=== PATIENT | male | born 2000 | race Caucasian/White ===

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

== ENCOUNTER → 2021-10-15 15:47 | Outpatient (CLI) | payer MEDICAID, SELFPAY | PROVIDERS: Visit Provider Nurse Practitioner | DX: U07.1 COVID-19 (principal) | CPT/HCPCS: C9803; U0003; U0005 ==

== ENCOUNTER 2022-11-16 10:27 | Emergency (ER) | payer OTHER, SELFPAY ==
--- NOTE | 2022-11-16 10:39 | XR_ITS ---
PROCEDURE INFORMATION: Exam: XR Left Hand Exam date and time: 11/16/2022 10:42 AM Age: 22 years old Clinical indication: Pain; Hand; Left; Additional info: Punched counter top TECHNIQUE: Imaging protocol: Radiologic exam of the left hand. Views: 3 or more views. COMPARISON: CR HANDL3 HAND-LT-3 VIEWS 07/18/2016 3:23 PM FINDINGS: Bones/joints: Acute fracture base of 5th metacarpal. Soft tissues: Associated soft tissue swelling. IMPRESSION: Acute fracture base of 5th metacarpal.
[2022-11-16 10:45] VITALS: BP 164/93; PULSE 98; RESP 20; TEMP 37.1; O2SAT 96; BMI 44.4
--- NOTE | 2022-11-16 11:35 | EXP.UTC ---
Discharge Plan Disposition Patient Disposition: Home, Self-Care Condition: Good Prescriptions Prescriptions: New ibuprofen [IBU] 800 mg tablet 800 mg PO TIDP PRN (Reason: Moderate Pain) Qty: 20 0RF Referrals Follow up/Referrals: Neil Macias JR, MD [Physician] - See instructions (Call office tomorrow for appointment with Kaitlyn on Thursday or Thursday) Provider,MD Roxann [Primary Care Provider] - See instructions Kaitlyn Pena PA [Physician Nursing Professor] - See instructions (Call office for appointment Thursday or Thursday) Activity Restrictions/Add. Instructions Additional Instructions/Restrictions: Call Orthopedic office in the morning for appointment with Kaitlyn on Thursday or Thursday Ibuprofen as directed for pain *RICE, Rest the extremity, Ice 15-20 minutes 3-4 times daily, Compress- wear the jatin wrap as discussed as much as possible to help reduce swelling and pain, Elevate the extremity when at rest *Jatin wrap and Orthoglass is for support and help control swelling, . Be sure that is not to tight but not to loose either *Elevate when resting? Clinical Impressions Clinical Impression: Fracture of metacarpal Qualifiers: Encounter type: initial encounter Metacarpal bone: fifth Fracture type: closed Metacarpal location: base Fracture alignment: displaced Laterality: left Qualified Code(s): S62.317A - Displaced fracture of base of fifth metacarpal bone, left hand, initial encounter for closed fracture Stand Alone Forms Stand Alone Forms: Work/School Release Instructions Patient Instructions: How To Perform RICE (Rest, Ice, Compress, Elevate), Ibuprofen Discharge ED Provider: Zoraida Morton [facility] [place] HPI General Stated complaint: [id number] left hand injury,home Mode of Arrival: Ambulatory Source of Information: Patient Limitations: No Limitations Time Seen by Provider: 11/16/22 11:36 Description of Symptoms (Recalled from Triage Doc. by RN): left hand punched counter top HEENT Symptoms (Recalled from RN notes): No Resp Symptoms (Recalled from RN notes): No Skin Symptoms (Recalled from RN notes): No MS Symptoms (Recalled from RN notes): Yes Functional Status (Recalled from RN notes): n/a History of Present Illness Provider Complaint: Patient states that he got mad and punched the top of a counter top States that he immediately had pain in the top of his left hand and felt a pop States that as the day went on he continued to have worsening of pain so he came in Related Data Previous Rx's Medication Instructions Recorded ibuprofen 800 mg tablet (IBU) 800 mg PO TIDP PRN Moderate Pain 11/16/22 #20 tabs Allergies Allergy/AdvReac Type Severity Reaction Status Date / Time amoxicillin [AMOXICILLIN] Allergy Unknown Verified 11/16/22 11:11 cephalexin [From KEFLEX] Allergy Unknown Verified 11/16/22 11:11 clavulanic acid Allergy Unknown Verified 11/16/22 11:11 [From AUGMENTIN] Worker's Comp Is this a Worker's Comp case?: No [facility] Disclaimer: The information contained in this section may have been updated after the patient was seen, as this information can be updated by other users. 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 Smoking Status: Never smoker second hand exposure: No alcohol intake: never substance use type: denies use current occupational status: other Travel in the last 8 weeks: None household members: family housing: house current occupational exposures/hazards: No caffeine: Yes ROS Obtained: Yes All systems reviewed & no additional complaints except as documented and Yes Systems reviewed as appropriate & no additional complaints except as documented Constitutional Constitutional: Reports system reviewed and no additional complaints, except as documented and Reports as per HPI Cardiovascular Cardiovascular: Reports system reviewed and no additional complaints, except as documented and Reports as per HPI Respiratory Respiratory: Repo
[2022-11-16 12:12] VITALS: BP 164/93; PULSE 98; RESP 20; TEMP 37.1; O2SAT 96
== END 2022-11-16 12:11 | disposition home or self-care (01) ==
PROVIDERS: Emergency Provider Nurse Practitioner
DX: S62.317A Displaced fracture of base of fifth metacarpal bone, left hand, initial encounter for closed fracture (principal); W22.8XXA Striking against or struck by other objects, initial encounter
CPT/HCPCS: 29085; 73130; 99212; 99213; G0463

== ENCOUNTER → 2022-12-05 22:35 | Outpatient (CLI) | payer OTHER, SELFPAY ==
[2022-12-05 18:35] LABS: Basophils # 0.1 K/mm3 (0-0.2); Basophils % 1.1 % (0.1-2.0); Eosinophils # 0.2 K/mm3 (0.0-0.4); Eosinophils % 1.9 % (0.1-12.0); Hematocrit 47.1 % (42.0-52.0); Hemoglobin 16.1 g/dL (14.1-18.0); Lymphocytes # 3.4 K/mm3 (0.7-4.5); Lymphocytes % 31.3 % (10-50); Mean Corpuscular HGB Conc 34.2 g/dL (31.8-35.4); Mean Corpuscular Hemoglobin 29.6 pg (27.0-31.2); Mean Corpuscular Volume 86.4 fl (80-94); Mean Platelet Volume 10.2 fl (7.4-10.4); Monocytes # 0.7 K/mm3 (0.1-1.0); Monocytes % 6.4 % (1.7-9.3); Neutrophils # 6.5 K/mm3 (1.8-7.8); Neutrophils % 59.3 % (37.0-80.0); Platelet Count 274 K/mm3 (142-424); Red Blood Count 5.46 M/mm3 (4.60-6.20); Red Cell Distribution Width 13.2 % (11.5-17.5); White Blood Count 10.9 K/mm3 (4.8-10.8)
[2022-12-05 18:45] LABS: Alanine Aminotransferase 44 U/L (12-78); Albumin Level 4.5 g/dl (3.5-5.0); Albumin/Globulin Ratio 1.7 (1.1-1.8); Alkaline Phosphatase 115 U/L (38-126); Anion Gap 12.3 mEq/L (5-15); Aspartate Amino Transferase 30 U/L (17-59); Bilirubin,Total 0.4 mg/dl (0.2-1.3); Blood Urea Nitrogen 17 mg/dl (9-20); Calcium 8.8 mg/dl (8.4-10.2); Carbon Dioxide 28 mmol/L (22.0-30.0); Chloride 103 mmol/L (98-107); Chol/HDL Ratio 4.5 (1-3.5); Cholesterol 154 mg/dl (140-200); Estimated Glomerular Filt Rate 107 ml/min (>60); GFR (African American) 129 ML/MIN (>60); Globulin 2.7 g/dL (1.3-3.2); Glucose 98 mg/dl (74-100); HDL Cholesterol 34 mg/dl (40-60); Potassium 4.3 mmoL/L (3.5-5.1); Sodium 139 mmol/L (136-145); Total Protein,Serum 7.2 g/dl (6.3-8.2); Triglycerides 204 mg/dl (30-150); VLDL Cholesterol 41 mg/dL (0-40)
[2022-12-05 18:56] LABS: Direct LDL Cholesterol 105.91 mg/dL (100-129)
[2022-12-05 19:02] LABS: 25-OH Vitamin D, Total 14.6 ng/mL (30-100)
[2022-12-05 19:16] LABS: Thyroid Stimulating Hormone 3.19 uIU/mL (0.465-4.68)
== END ==
PROVIDERS: PCP Nurse Practitioner Family; Visit Provider Nurse Practitioner Family
DX: I10 Essential (primary) hypertension (principal); R53.83 Other fatigue; E55.9 Vitamin D deficiency, unspecified
CPT/HCPCS: 80053; 80061; 82306; 83036; 84443; 85025

== ENCOUNTER → 2023-03-20 16:16 | Outpatient (CLI) | payer OTHER, SELFPAY ==
--- NOTE | 2023-03-20 16:23 | XR_ITS ---
PROCEDURE INFORMATION: Exam: XR Entire Spine Exam date and time: 03/20/2023 4:25 PM Age: 22 years old Clinical indication: Low back pain TECHNIQUE: Imaging protocol: XR of the entire spine. Evaluation for scoliosis or surgical evaluation. Views: 2 or 3 views. COMPARISON: CR CXR CHEST(2 VIEWS-NOT PORTABLE) 01/02/2017 2:10 PM FINDINGS: Bones/joints: No significant scoliosis . 3 degrees of scoliosis of the thoracic spine. IMPRESSION: No significant scoliosis . 3 degrees of scoliosis of the thoracic spine.
== END ==
PROVIDERS: PCP Nurse Practitioner Family; Visit Provider Nurse Practitioner Family
DX: M54.9 Dorsalgia, unspecified (principal); M54.50 Low back pain, unspecified
CPT/HCPCS: 72081

== ENCOUNTER 2023-04-11 19:23 | Emergency (ER) | payer OTHER, SELFPAY ==
[2023-04-11 19:30] VITALS: BP 179/95; PULSE 80; RESP 18; TEMP 37.3; O2SAT 98; BMI 31.1
--- NOTE | 2023-04-11 19:37 | EXP.UTC ---
Discharge Plan Disposition Patient Disposition: Home, Self-Care Condition: Good Prescriptions Prescriptions: No Action minocycline 100 mg capsule 100 mg PO BID 10 Days Qty: 20 0RF prednisone 20 mg tablet 20 mg PO BID 5 Days Qty: 10 0RF benzonatate 100 mg capsule 100 mg PO TID PRN (Reason: cough) Qty: 30 0RF cholecalciferol (vitamin D3) 50 mcg (2,000 unit) capsule 50 mcg PO DAILY Qty: 30 4RF cholecalciferol (vitamin D3) 1,250 mcg (50,000 unit) tablet 1,250 mcg PO WEEKLY Qty: 7 2RF Referrals Follow up/Referrals: Rizwan Timmons APRN [Primary Care Provider] - See instructions Activity Restrictions/Add. Instructions Additional Instructions/Restrictions: covid swab was sent to lab, call tomorrow for results. self isolate until test results are known to be negative Clinical Impressions Clinical Impression: Close exposure to COVID-19 virus Instructions Patient Instructions: COVID-19: Protecting Yourself When You're at High Risk, Preventing the Spread of Coronavirus Discharge Instructions Discharge ED Provider: Benigno ([facility])Antonia [facility] [place] HPI General Stated complaint: exposed to covid Mode of Arrival: Ambulatory Source of Information: Patient Limitations: No Limitations Time Seen by Provider: 04/11/23 19:38 HEENT Symptoms (Recalled from RN notes): No Resp Symptoms (Recalled from RN notes): No Skin Symptoms (Recalled from RN notes): No GI/ Symptoms (Recalled from RN notes): No MS Symptoms (Recalled from RN notes): No Card Symptoms (Recalled from RN notes): No Other (Recalled from RN notes): No History of Present Illness Provider Complaint: 22 yr old male presents for a covid test. grandmother tested positive Related Data Previous Rx's Medication Instructions Recorded cholecalciferol (vitamin D3) 1,250 1,250 mcg PO WEEKLY #7 tabs 12/11/22 mcg (50,000 unit) tablet cholecalciferol (vitamin D3) 50 50 mcg PO DAILY #30 caps 12/11/22 mcg (2,000 unit) capsule benzonatate 100 mg capsule 100 mg PO TID PRN cough #30 caps 03/19/23 minocycline 100 mg capsule 100 mg PO BID 10 days #20 caps 03/19/23 prednisone 20 mg tablet 20 mg PO BID 5 days #10 tabs 03/19/23 Allergies Allergy/AdvReac Type Severity Reaction Status Date / Time amoxicillin [AMOXICILLIN] Allergy Unknown Verified 03/19/23 15:49 cephalexin [From KEFLEX] Allergy Unknown Verified 03/19/23 15:49 clavulanic acid Allergy Unknown Verified 03/19/23 15:49 [From AUGMENTIN] [facility] Disclaimer: The information contained in this section may have been updated after the patient was seen, as this information can be updated by other users. 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 smoker second hand exposure: No alcohol intake: never substance use type: denies use current occupational status: other Travel in the last 8 weeks: None household members: family housing: house current occupational exposures/hazards: No caffeine: Yes ROS Obtained: Yes All systems reviewed & no additional complaints except as documented Constitutional Constitutional: Reports system reviewed and no additional complaints, except as documented Eyes Eyes: Reports system reviewed and no additional complaints, except as documented ENT Ears, Nose, Mouth, and Throat: Reports system reviewed and no additional complaints, except as documented Cardiovascular Cardiovascular: Reports system reviewed and no additional complaints, except as documented Respiratory Respiratory: Reports system reviewed and no additional complaints, except as documented Gastrointestinal Gastrointestingal: Reports system reviewed and no additional complaints, except as documented Integumentary/Breasts Skin/Breast: Reports system reviewed and no additional complaints, except as documented Neurologic Neurologic: Reports system reviewed and no additional complaints, except as documented Endocrine Endocrine: R
[2023-04-11 19:43] VITALS: BP 179/95; PULSE 80; RESP 18; TEMP 37.3; O2SAT 98
== END 2023-04-11 19:47 | disposition home or self-care (01) ==
PROVIDERS: Emergency Provider Nurse Practitioner Family; PCP Nurse Practitioner Family
DX: Z20.822 Contact with and (suspected) exposure to COVID-19 (principal)
CPT/HCPCS: 99212; G0463

== ENCOUNTER 2023-06-17 17:06 | Emergency (ER) | payer OTHER, SELFPAY ==
[2023-06-17 17:40] VITALS: BP 194/94; PULSE 69; RESP 18; TEMP 37.1; O2SAT 98; BMI 41.7
--- NOTE | 2023-06-17 18:05 | EXP.UTC ---
Discharge Plan Disposition Patient Disposition: Still a Patient Prescriptions Prescriptions: No Action cholecalciferol (vitamin D3) 50 mcg (2,000 unit) capsule 50 mcg PO DAILY Qty: 30 4RF minocycline 100 mg capsule 100 mg PO BID cholecalciferol (vitamin D3) 1,250 mcg (50,000 unit) tablet 1,250 mcg PO WEEKLY Referrals Follow up/Referrals: Rizwan Timmons APRN [Primary Care Provider] - See instructions Clinical Impressions Clinical Impression: Abdominal pain Qualifiers: Abdominal location: right upper quadrant Qualified Code(s): R10.11 - Right upper quadrant pain Discharge ED Provider: Benigno ([facility])[place] [facility] General Stated complaint: abd pain, nausea Mode of Arrival: Ambulatory Source of Information: Patient Limitations: No Limitations Time Seen by Provider: 06/17/23 18:05 Description of Symptoms (Recalled from Triage Doc. by RN): Stomach pain. This has been going on for 3-4 month and getting worse. When he eats it runs right through him. HEENT Symptoms (Recalled from RN notes): No Resp Symptoms (Recalled from RN notes): No Skin Symptoms (Recalled from RN notes): No MS Symptoms (Recalled from RN notes): No Functional Status (Recalled from RN notes): n/a History of Present Illness Provider Complaint: 23 yr old male presents for upper rt abd pain for 2-3 months but worsening. pt states every time he eats it goes right through him. pt states he abd pain is the worse today. pt states his abd is tearing it up in there Related Data Home Medications Medication Instructions Recorded Confirmed cholecalciferol (vitamin D3) 1,250 1,250 mcg PO WEEKLY supplement 06/17/23 06/17/23 mcg (50,000 unit) tablet minocycline 100 mg capsule 100 mg PO BID acne 06/17/23 06/17/23 Previous Rx's Medication Instructions Recorded cholecalciferol (vitamin D3) 50 50 mcg PO DAILY #30 caps 12/11/22 mcg (2,000 unit) capsule Allergies Allergy/AdvReac Type Severity Reaction Status Date / Time amoxicillin [AMOXICILLIN] Allergy Unknown Verified 06/17/23 17:59 cephalexin [From KEFLEX] Allergy Unknown Verified 06/17/23 17:59 clavulanic acid Allergy Unknown Verified 06/17/23 17:59 [From AUGMENTIN] Worker's Comp Is this a Worker's Comp case?: No [facility] Disclaimer: The information contained in this section may have been updated after the patient was seen, as this information can be updated by other users. 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 second hand exposure: No alcohol intake: never substance use type: denies use current occupational status: other Travel in the last 8 weeks: None household members: family housing: house current occupational exposures/hazards: No caffeine: Yes ROS Obtained: Yes All systems reviewed & no additional complaints except as documented Constitutional Constitutional: Reports system reviewed and no additional complaints, except as documented Eyes Eyes: Reports system reviewed and no additional complaints, except as documented ENT Ears, Nose, Mouth, and Throat: Reports system reviewed and no additional complaints, except as documented Cardiovascular Cardiovascular: Reports system reviewed and no additional complaints, except as documented Respiratory Respiratory: Reports system reviewed and no additional complaints, except as documented Gastrointestinal Gastrointestingal: Reports system reviewed and no additional complaints, except as documented, as per HPI, abdominal pain, change in bowel habits, diarrhea and reflux Genitourinary Male Genitourinary: Reports system reviewed and no additional complaints, except as documented Integumentary/Breasts Skin/Breast: Reports system reviewed and no additional complaints, except as documented Neurologic Neurologic: Reports system reviewed and no additional complaints, except as documented Endocrine Endocrine: Reports system reviewed an
[2023-06-17 18:20] LABS: Microscopic, Urine URINE MICROSCOPIC (MICROSCOPIC)
[2023-06-17 18:23] LABS: Appearance,Urine CLEAR (Clear); Bilirubin,Urine Negative (Negative); Blood, Urine TRACE-I (Negative); Color,Urine YELLOW (Yellow); Glucose,Urine (UA) Negative (Negative); Ketones,Urine Negative (Negative); Leukocyte Esterase,Urine Negative (Negative); Nitrate,Urine Negative (Negative); Protein,Urine Negative (Negative); Specific Gravity, Urine 1.025 (1.005-1.030)
--- NOTE | 2023-06-17 18:34 | PC.NURSE ---
pt arrived to room 11 from [facility]
[2023-06-17 18:35] LABS: RBC,Urine Occasional #/hpf (0-3); Squamous Epithelial Cell,Urine Occasional #/hpf (0-5); WBC,Urine Occasional #/hpf (0-3)
[2023-06-17 18:42] VITALS: BP 165/93; PULSE 65; RESP 18; TEMP 36.7; O2SAT 99; BMI 42.3
--- NOTE | 2023-06-17 19:03 | CT_ITS ---
PROCEDURE INFORMATION: Exam: CT Abdomen And Pelvis With Contrast Exam date and time: 06/17/2023 8:04 PM Age: 23 years old Clinical indication: Abdominal pain; Additional info: Ruq epigastric pain TECHNIQUE: Imaging protocol: Computed tomography of the abdomen and pelvis with contrast. Radiation optimization: All CT scans at this facility use at least one of these dose optimization techniques: automated exposure control; mA and/or kV adjustment per patient size (includes targeted exams where dose is matched to clinical indication); or iterative reconstruction. Contrast material: ISOVUE; Contrast volume: 75 ml; Contrast route: IV; REPORTING DATA: Count of CT and Cardiac NM exams in prior 12 months: This patient has received 0 known CTs and 0 known cardiac nuclear medicine studies in the 12 months prior to the current study. COMPARISON: CR XR SCOLIOSIS SURVEY 03/20/2023 4:25 PM FINDINGS: Liver: Normal. No mass. Gallbladder and bile ducts: Normal. No calcified stones. No ductal dilation. Pancreas: Normal. No ductal dilation. Spleen: Normal. No splenomegaly. Adrenal glands: Normal. No mass. Kidneys and ureters: Normal. No hydronephrosis. Stomach and bowel: Unremarkable. No obstruction. No mucosal thickening. Appendix: No evidence of appendicitis. Intraperitoneal space: Mild misting of the central mesentery. No free air or free fluid. Vasculature: Unremarkable. No abdominal aortic aneurysm. Lymph nodes: Unremarkable. No enlarged lymph nodes. Urinary bladder: Unremarkable as visualized. Reproductive: Unremarkable as visualized. Bones/joints: No acute findings. Suggestion of Scheuermann's disease involving the lower thoracic spine. Soft tissues: Unremarkable. IMPRESSION: Gracia mesentery without definite cause identified, a nonspecific finding with a broad differential that includes mesenteric panniculitis or other inflammation process, edema/hemorrhage, and potentially neoplasm.
--- NOTE | 2023-06-17 19:05 | HMH.EDGENADL ---
Discharge Plan Disposition Patient Disposition: Home, Self-Care Prescriptions Prescriptions: No Action cholecalciferol (vitamin D3) 50 mcg (2,000 unit) capsule 50 mcg PO DAILY Qty: 30 4RF minocycline 100 mg capsule 100 mg PO BID cholecalciferol (vitamin D3) 1,250 mcg (50,000 unit) tablet 1,250 mcg PO WEEKLY Referrals Follow up/Referrals: Rizwan Timmons APRN [Primary Care Provider] - See instructions Jaison Danielle MD [Staff Physician] - See instructions Activity Restrictions/Add. Instructions Additional Instructions/Restrictions: At this time was felt you are safe to be discharged home. If new or worsening symptoms please do not hesitate to return the emergency department. Please call Dr. Danielle tomorrow morning at his office to schedule an appointment as soon as you are able. Clinical Impressions Clinical Impression: Abnormal finding on CT scan Abdominal pain Qualifiers: Abdominal location: right upper quadrant Qualified Code(s): R10.11 - Right upper quadrant pain Instructions Patient Instructions: DI for Acute Abdominal Pain Discharge ED Provider: Mckinley Hartman General Adult HPI General Chief complaint: Abdominal Pain Stated complaint: abd pain, nausea Time Seen by Provider: 06/17/23 18:05 Mode of Arrival: Ambulatory Source of Information: Patient Limitations: No Limitations Description of Symptoms (Recalled from ER Triage Doc. by RN): pt has been experiencing episodes of upper abd pain for the 3-4 days, pt states he thinks his gallbladder is going bad, has been having chornic heart burn and nausea. pt states pain is stabbing in nature and mainly on RUQ History of Present Illness HPI narrative: Patient is a 23-year-old male with past medical history of cardiac arrhythmia status post ablation who presents emergency department for evaluation of epigastric right upper quadrant abdominal pain. Patient states that he has had chronic epigastric pain worse with eating, chronic diarrhea for the last 3 months, nonbloody. Today patient ate a cheeseburger for lunch when he developed epigastric and right upper quadrant abdominal pain. Right upper quadrant aspect has waned somewhat prior to arrival. However due to persistent symptoms he presents here for continued evaluation. Related Data Home Medications Medication Instructions Recorded Confirmed cholecalciferol (vitamin D3) 1,250 1,250 mcg PO WEEKLY supplement 06/17/23 06/17/23 mcg (50,000 unit) tablet minocycline 100 mg capsule 100 mg PO BID acne 06/17/23 06/17/23 Previous Rx's Medication Instructions Recorded cholecalciferol (vitamin D3) 50 50 mcg PO DAILY #30 caps 12/11/22 mcg (2,000 unit) capsule Allergies Allergy/AdvReac Type Severity Reaction Status Date / Time amoxicillin [AMOXICILLIN] Allergy Unknown Verified 06/17/23 17:59 cephalexin [From KEFLEX] Allergy Unknown Verified 06/17/23 17:59 clavulanic acid Allergy Unknown Verified 06/17/23 17:59 [From AUGMENTIN] [facility] Disclaimer: The information contained in this section may have been updated after the patient was seen, as this information can be updated by other users. 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 smoker second hand exposure: No alcohol intake: never substance use type: denies use current occupational status: other Travel in the last 8 weeks: None household members: family housing: house current occupational exposures/hazards: No caffeine: Yes ROS Obtained: Yes Systems reviewed as appropriate & no additional complaints except as documented Physical Exam General General appearance: alert and in no apparent distress Head Head exam: atraumatic and normocephalic Eye Eye exam: Present PERRL and EOMI ENT ENT exam: Present mucous membranes moist Neck Neck exam: Present normal inspection Chest Chest inspection: Present normal inspection and symm
[2023-06-17 19:47] LABS: Basophils # 0.1 K/mm3 (0-0.2); Basophils % 0.5 % (0.1-2.0); Eosinophils # 0.2 K/mm3 (0.0-0.4); Eosinophils % 1.4 % (0.1-12.0); Hematocrit 46.3 % (42.0-52.0); Hemoglobin 15.5 g/dL (14.1-18.0); Lymphocytes # 2.9 K/mm3 (0.7-4.5); Lymphocytes % 24.5 % (10-50); Mean Corpuscular HGB Conc 33.5 g/dL (31.8-35.4); Mean Corpuscular Hemoglobin 28.9 pg (27.0-31.2); Mean Corpuscular Volume 86.3 fl (80-94); Mean Platelet Volume 9.5 fl (7.4-10.4); Monocytes # 0.5 K/mm3 (0.1-1.0); Monocytes % 4.3 % (1.7-9.3); Neutrophils # 8.2 K/mm3 (1.8-7.8); Neutrophils % 69.3 % (37.0-80.0); Platelet Count 265 K/mm3 (142-424); Red Blood Count 5.37 M/mm3 (4.60-6.20); White Blood Count 11.9 K/mm3 (4.8-10.8)
[2023-06-17 19:53] LABS: Alanine Aminotransferase 48 U/L (12-78); Albumin Level 4.6 g/dl (3.5-5.0); Albumin/Globulin Ratio 1.3 (1.1-1.8); Alkaline Phosphatase 118 U/L (38-126); Anion Gap 15.3 mEq/L (5-15); Aspartate Amino Transferase 38 U/L (17-59); Bilirubin,Total 0.3 mg/dl (0.2-1.3); Blood Urea Nitrogen 16 mg/dl (9-20); Carbon Dioxide 23 mmol/L (22.0-30.0); Chloride 106 mmol/L (98-107); Creatinine Clearance Estimated 168 mL/min (50-200); Estimated Glomerular Filt Rate 121 ml/min (>60); GFR (African American) 146 ML/MIN (>60); Globulin 3.6 g/dL (1.3-3.2); Glucose 95 mg/dl (74-100); Lipase 76 U/L (23-300); Potassium 4.3 mmoL/L (3.5-5.1); Sodium 140 mmol/L (136-145); Total Protein,Serum 8.2 g/dl (6.3-8.2)
--- NOTE | 2023-06-17 20:57 | PC.NURSE ---
pt is ready for re eval
[2023-06-17 21:30] VITALS: BP 133/84; PULSE 74; RESP 18; TEMP 36.7; O2SAT 98
== END 2023-06-17 21:32 | disposition home or self-care (01) ==
LOC: UTC 18:09 → ER 18:34
PROVIDERS: Nurse Practitioner Family; Emergency Provider Emergency Medicine; PCP Nurse Practitioner Family
DX: R10.13 Epigastric pain (principal); R10.11 Right upper quadrant pain; F17.200 Nicotine dependence, unspecified, uncomplicated
CPT/HCPCS: 74177; 80053; 81001; 83690; 85025; 87086; 96374; 96375; 99285; J0131; J2405; Q9967

== ENCOUNTER → 2023-07-01 11:18 | Outpatient (CLI) | payer OTHER, SELFPAY ==
[2023-07-01 11:45] LABS: Basophils # 0.1 K/mm3 (0-0.2); Basophils % 0.6 % (0.1-2.0); Eosinophils # 0.2 K/mm3 (0.0-0.4); Eosinophils % 1.9 % (0.1-12.0); Hematocrit 45.7 % (42.0-52.0); Hemoglobin 16.2 g/dL (14.1-18.0); Lymphocytes # 2.7 K/mm3 (0.7-4.5); Lymphocytes % 30.5 % (10-50); Mean Corpuscular HGB Conc 35.3 g/dL (31.8-35.4); Mean Corpuscular Hemoglobin 30.3 pg (27.0-31.2); Mean Corpuscular Volume 85.8 fl (80-94); Mean Platelet Volume 9.7 fl (7.4-10.4); Monocytes # 0.4 K/mm3 (0.1-1.0); Neutrophils # 5.4 K/mm3 (1.8-7.8); Neutrophils % 62.1 % (37.0-80.0); Platelet Count 220 K/mm3 (142-424); Red Blood Count 5.33 M/mm3 (4.60-6.20); Red Cell Distribution Width 13.1 % (11.5-17.5); White Blood Count 8.7 K/mm3 (4.8-10.8)
[2023-07-01 12:31] LABS: Alanine Aminotransferase 47 U/L (12-78); Albumin Level 4.4 g/dl (3.5-5.0); Albumin/Globulin Ratio 1.4 (1.1-1.8); Alkaline Phosphatase 100 U/L (38-126); Amylase 82 U/L (30-110); Anion Gap 12.5 mEq/L (5-15); Aspartate Amino Transferase 34 U/L (17-59); Bilirubin,Total 0.3 mg/dl (0.2-1.3); Blood Urea Nitrogen 15 mg/dl (9-20); Calcium 9.2 mg/dl (8.4-10.2); Carbon Dioxide 26 mmol/L (22.0-30.0); Chloride 106 mmol/L (98-107); Estimated Glomerular Filt Rate 93 ml/min (>60); GFR (African American) 113 ML/MIN (>60); Globulin 3.1 g/dL (1.3-3.2); Glucose 139 mg/dl (74-100); Lipase 81 U/L (23-300); Potassium 3.5 mmoL/L (3.5-5.1); Sodium 141 mmol/L (136-145); Total Protein,Serum 7.5 g/dl (6.3-8.2)
[2023-07-01 12:48] LABS: Procalcitonin 0.053 ng/mL (0.0-2.0)
[2023-07-01 14:47] LABS: Erythrocyte Sedimentation Rate 4 mm/hr (0-15)
[2023-07-02 15:57] LABS: C-Reactive Protein 1.4 mg/L (0-4)
== END ==
PROVIDERS: PCP Nurse Practitioner Family; Visit Provider Surgery
DX: R10.9 Unspecified abdominal pain (principal)
CPT/HCPCS: 36415; 80053; 82150; 83690; 84145; 85025; 85651; 86140

== ENCOUNTER → 2023-07-16 08:30 | Outpatient (CLI) | payer OTHER, SELFPAY ==
--- NOTE | 2023-07-16 08:30 | US_ITS ---
FINAL REPORT CLINICAL HISTORY: abdominal pain COMPARISON: None FINDINGS: Sonographic images of the right upper quadrant were obtained. The pancreas is not visualized secondary to overlying bowel gas. There is increased echogenicity in the liver compatible with fatty infiltration. The gallbladder appears normal without evidence of gallstones.There is no evidence of biliary ductal dilatation.The common duct measures 2.3 mm. Limited images of the right kidney are unremarkable. IMPRESSION: Fatty infiltration of the liver. Pancreas not visualized secondary to overlying bowel gas. Reviewed, Interpreted and Dictated by William Sandhu III, MD Transcribed by Bernice Vail Authenticated and [facility]
== END ==
PROVIDERS: PCP Nurse Practitioner Family; Visit Provider Surgery
DX: R10.9 Unspecified abdominal pain (principal)
CPT/HCPCS: 76705

== ENCOUNTER → 2023-08-31 09:03 | Outpatient (CLI) | payer OTHER, SELFPAY ==
[2023-08-31 13:46] LABS: Occult Blood,Stool Negative (Negative)
[2023-09-03 23:08] LABS: Calprotectin, Fecal 56 ug/g (0-120)
[2023-09-07 02:34] LABS: Pancreatic Elastase, Fecal <50 (>200)
== END ==
PROVIDERS: PCP Internal Medicine; Visit Provider Nurse Practitioner
DX: R10.10 Upper abdominal pain, unspecified (principal); R10.9 Unspecified abdominal pain; K92.1 Melena
CPT/HCPCS: 82272; 82656; 83993; G0328

== ENCOUNTER → 2023-09-16 07:49 | Outpatient (CLI) | payer OTHER, SELFPAY ==
--- NOTE | 2023-09-16 07:50 | CT_ITS ---
FINAL REPORT TECHNIQUE: After the administration of intravenous contrast, axial images were obtained through the abdomen and pelvis by computed tomography. The study was performed with techniques to keep radiation dose as low as reasonably achievable, (ALARA). Individual dose reduction techniques using automated exposure control or adjustment of mA and/or kV according to the patient's size were employed. CLINICAL HISTORY: abdominal pain COMPARISON: 06/17/2023 FINDINGS: Abdomen: The lung bases are clear. There is moderate diffuse fatty infiltration of the liver. The gallbladder is present. The spleen, pancreas, adrenals and kidneys appear unremarkable. The aorta is normal in caliber. Pelvis: The appendix is not identified. The urinary bladder is incompletely distended. There is subtle haziness in the root of the mesentery. There are a few small lymph nodes in the right lower quadrant. IMPRESSION: Nonspecific haziness root of the mesentery, similar to the prior study, and a few small lymph nodes. Mesenteric panniculitis remains a consideration. Fatty liver. Reviewed, Interpreted and Dictated by Barry De Dios MD Transcribed by Rebekah Justice Authenticated and [facility]
[2023-09-16 08:24] LABS: Blood Urea Nitrogen 19 mg/dl (9-20); Estimated Glomerular Filt Rate 121 ml/min (>60); GFR (African American) 146 ML/MIN (>60)
[2023-09-16] MEDS: IOPAMIDOL-370 (76%);100ML BOTTLE 75 ML IV (09:02)
[2023-09-16] MEDS: SODIUM CHLORIDE 0.9% 10ML SYR (RAD ONLY) 10 ML IV (09:02)
== END ==
LOC: RAD 07:50
PROVIDERS: PCP Internal Medicine; Visit Provider Surgery
DX: R10.9 Unspecified abdominal pain (principal)
CPT/HCPCS: 36415; 74177; 82565; 84520; Q9967

== ENCOUNTER 2024-01-15 12:08 | Emergency (ER) | payer OTHER, SELFPAY ==
[2024-01-15 12:10] VITALS: PULSE 84; RESP 18; TEMP 36.7; O2SAT 96; BMI 43.4
--- NOTE | 2024-01-15 12:47 | EXP.UTC ---
Discharge Plan Disposition Patient Disposition: Home, Self-Care Condition: Good Prescriptions Prescriptions: New ondansetron 4 mg tablet,disintegrating 4 mg PO Q8H PRN (Reason: nausea and vomiting) Qty: 12 0RF No Action hydrochlorothiazide 12.5 mg tablet 12.5 mg PO DAILY 30 Days Qty: 30 2RF losartan 25 mg tablet 25 mg PO DAILY 30 Days Qty: 30 2RF Referrals Follow up/Referrals: Lino Cruz, [Primary Care Provider] - See instructions Activity Restrictions/Add. Instructions Additional Instructions/Restrictions: Drink extra fluids with and between meals. If you have difficulty drinking, try very small amounts of water or suck on ice chips. ? Avoid fruit juices, as these do not replace minerals and can actually increase diarrhea. ? Children and adults can use sports drinks to replenish electrolytes. Younger children and infants should use products formulated for children, like oral rehydration solutions. ? Eat food in small amounts and let your stomach recover. ? Get lots of rest. You may feel tired or weak. ? No greasy or fried foods for the next 24-48 hours BRAT diet Bananas Rice Apples and [place] ? Make sure to drink plenty of liquids ? Return if needed ? Straight to ER if any life threatening symptoms ? Zofran as prescribed ? You was given an outpatient order for diarrhea panel, please collect specimen and bring back to outpatient lab then call back to the [facility] or follow up with family doctor for results ? Follow up with family doctor in the next 48-72 hours if no improvement or any worsening of symptoms Your blood pressure was elevated in the [facility] today Make sure to follow up with your Family Doctor for re-evaluation Clinical Impressions Clinical Impression: Nausea vomiting and diarrhea Stand Alone Forms Stand Alone Forms: Work/School Release Instructions Patient Instructions: Diarrhea, Nausea and Vomiting-Adult Discharge ED Provider: Zoraida Morton [facility] [place] General Stated complaint: headache, vomiting Mode of Arrival: Ambulatory Source of Information: Patient Limitations: No Limitations Time Seen by Provider: 01/15/24 12:47 Description of Symptoms (Recalled from Triage Doc. by RN): Pt's symptoms are KHOURY, stomach cramping, diarrhea, and nausea. HEENT Symptoms (Recalled from RN notes): Yes Resp Symptoms (Recalled from RN notes): No Skin Symptoms (Recalled from RN notes): No MS Symptoms (Recalled from RN notes): No Functional Status (Recalled from RN notes): n/a History of Present Illness Provider Complaint: Patient states that several people at work has had a stomach bug States that he started this morning with N/V/D and stomach cramps and feeling fatigued States that he has vomited twice but diarrhea has been like water so he came in to get checked Related Data Previous Rx's Medication Instructions Recorded losartan 25 mg tablet 25 mg PO DAILY 30 days #30 tabs 07/22/23 hydrochlorothiazide 12.5 mg tablet 12.5 mg PO DAILY 30 days #30 tabs 08/06/23 ondansetron 4 mg disintegrating 4 mg PO Q8H PRN nausea and 01/15/24 tablet vomiting #12 tabs Allergies Allergy/AdvReac Type Severity Reaction Status Date / Time amoxicillin [AMOXICILLIN] Allergy Unknown Verified 01/15/24 12:47 cephalexin [From KEFLEX] Allergy Unknown Verified 01/15/24 12:47 clavulanic acid Allergy Unknown Verified 01/15/24 12:47 [From AUGMENTIN] Worker's Comp Is this a Worker's Comp case?: No [facility] Disclaimer: The information contained in this section may have been updated after the patient was seen, as this information can be updated by other users. Medical History Family history of diabetes mellitus Surgical History History of cardiac radiofrequency ablation History of placement of ear tubes 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 Smoking Status: Current every day smoker second hand exposure: No alcohol intake: current substance use type: marijuana current occupational status: unemployed and other Travel in the last 8 weeks: None household members: family housing: house current occupational exposures/hazards: No caffeine: Yes ROS Obtained: Yes All systems reviewed & no additional complaints except as documented and Yes Systems reviewed as appropriate & no additional complaints except as documented Constitutional Constitutional: Reports system reviewed and no additional complaints, except as documented, Reports fatigue, Denies fever(s) and Reports headache(s) ENT Ears, Nose, Mouth, and Throat: Reports system reviewed and no additional complaints, except as documented, Reports as per HPI and Reports headache(s) Cardiovascular Cardiovascular: Reports system reviewed and no additional complaints, except as documented and Reports as per HPI Respiratory Respiratory: Reports system reviewed and no additional complaints, except as documented and Reports as per HPI Gastrointestinal Gastrointestingal: Reports system reviewed and no additional complaints, except as documented, as per HPI, cramping, diarrhea and nausea Musculoskeletal Musculoskeletal: Reports system reviewed and no additional complaints, except as documented and Reports as per HPI Neurologic Neurologic: Reports headache(s) Endocrine Endocrine: Reports fatigue Physical Exam General General appearance: alert and in no apparent distress ENT ENT exam: Present mucous membranes moist Respiratory Respiratory exam: Present normal lung sounds bilaterally; Absent respiratory distress or wheezes Cardiovascular Cardiovascular exam: Present regular rate, normal rhythm and normal heart sounds Abdominal Exam Abdominal exam: Present soft and normal bowel sounds; Absent distention or tenderness Neurological Exam Neurological exam: Present alert, oriented X3 and normal gait Medical Decision Making Herve Inquiry Pt receiving controlled substance: No Herve was queried for this patient: No Vital Signs: 01/15/24 12:10 Temperature 98.1 F Temperature Source Oral Pulse Rate [Right Radial] 84 Respiratory Rate 18 02 Sat by Pulse Oximetry 96 Oxygen Delivery Method Room Air
[2024-01-15 13:05] VITALS: BP 186/94; PULSE 84; RESP 18; TEMP 36.7; O2SAT 96
== END 2024-01-15 13:05 | disposition home or self-care (01) ==
PROVIDERS: Emergency Provider Nurse Practitioner; PCP Internal Medicine
DX: R11.2 Nausea with vomiting, unspecified (principal); R19.7 Diarrhea, unspecified; R51.9 Headache, unspecified; F17.210 Nicotine dependence, cigarettes, uncomplicated
CPT/HCPCS: 99212; 99214; G0463

== ENCOUNTER 2024-03-04 16:48 | Emergency (ER) | payer OTHER, SELFPAY ==
[2024-03-04 17:00] VITALS: PULSE 62; RESP 18; TEMP 36.7; O2SAT 99; BMI 43.8
--- NOTE | 2024-03-04 17:00 | EXP.UTC ---
Discharge Plan Disposition Patient Disposition: Home, Self-Care Condition: Good Prescriptions Prescriptions: New sulfamethoxazole-trimethoprim [Bactrim DS] 800-160 mg tablet 1 tab PO Q12H Qty: 20 0RF prednisone 20 mg tablet 20 mg PO BID Qty: 10 0RF Referrals Follow up/Referrals: Lino Cruz DO [Primary Care Provider] - See instructions Clinical Impressions Clinical Impression: Right otitis media Instructions Patient Instructions: DI for Otitis Media (Middle Ear Infection)-Child Discharge ED Provider: Janna Lynne [facility] [place] General Stated complaint: Congested,sore throat,chest congestion Time Seen by Provider: 03/04/24 17:24 History of Present Illness Provider Complaint: Cough, congestion, sore throat X 2-3 days. Wheezing. SOA. Onset (ago): day(s) (3) Relieving factors: none Exacerbating factors: none Associated symptoms: cough and shortness of breath Treatments prior to arrival: none Related Data Previous Rx's Medication Instructions Recorded prednisone 20 mg tablet 20 mg PO BID #10 tabs 03/04/24 sulfamethoxazole 800 1 tab PO Q12H #20 tabs 03/04/24 mg-trimethoprim 160 mg tablet (Bactrim DS) Allergies Allergy/AdvReac Type Severity Reaction Status Date / Time amoxicillin [AMOXICILLIN] Allergy Unknown Verified 03/04/24 17:17 cephalexin [From KEFLEX] Allergy Unknown Verified 03/04/24 17:17 clavulanic acid Allergy Unknown Verified 03/04/24 17:17 [From AUGMENTIN] [facility] Disclaimer: The information contained in this section may have been updated after the patient was seen, as this information can be updated by other users. Medical History Family history of diabetes mellitus Surgical History History of cardiac radiofrequency ablation History of placement of ear tubes 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 Smoking Status: Current every day smoker second hand exposure: No alcohol intake: current substance use type: marijuana current occupational status: unemployed and other Travel in the last 8 weeks: None household members: family housing: house current occupational exposures/hazards: No caffeine: Yes ROS Obtained: Yes All systems reviewed & no additional complaints except as documented ENT Ears, Nose, Mouth, and Throat: Reports sinus pressure and Reports sore throat Respiratory Respiratory: Reports cough Physical Exam General General appearance: alert and in no apparent distress Head Head exam: atraumatic, normocephalic and normal inspection Eye Eye exam: Present normal appearance, PERRL and EOMI ENT ENT exam: Present normal exam, normal oropharynx, mucous membranes moist and normal external ear exam Expanded ENT Exam TM/Canal exam: Right TM: erythema and bulging Throat exam: Present other (PND) Neck Neck exam: Present normal inspection, full ROM and trachea midline; Absent meningismus or lymphadenopathy Chest Chest inspection: Present normal inspection and symmetric chest wall rise; Absent tenderness Respiratory Respiratory exam: Present normal lung sounds bilaterally; Absent respiratory distress Cardiovascular Cardiovascular exam: Present regular rate and normal rhythm; Absent JVD Abdominal Exam Abdominal exam: Present soft and normal bowel sounds; Absent distention, tenderness or guarding Extremities Exam Extremities exam: Present normal inspection, full ROM and normal capillary refill; Absent calf tenderness Back Exam Back exam: Present normal inspection; Absent tenderness Neurological Exam Neurological exam: Present alert and oriented X3 Psychiatric Psychiatric exam: Present normal affect and normal mood Skin Skin exam: Present warm, dry, intact and normal color Lymphatic Lymphatic Findings: no adenopathy Medical Decision Making Herve Inquiry Pt receiving controlled substance: No
[2024-03-04 17:37] VITALS: BP 0/0; PULSE 62; RESP 18; TEMP 36.7; O2SAT 99
== END 2024-03-04 17:37 | disposition home or self-care (01) ==
PROVIDERS: Emergency Provider Physician Assistant; PCP Internal Medicine
DX: H66.91 Otitis media, unspecified, right ear (principal); R05.9 Cough, unspecified; R07.0 Pain in throat; R09.81 Nasal congestion; F17.210 Nicotine dependence, cigarettes, uncomplicated
CPT/HCPCS: 99212; 99214; G0463

== ENCOUNTER 2024-04-18 16:52 | Emergency (ER) | payer OTHER, SELFPAY ==
[2024-04-18 17:36] VITALS: BP 0/0; PULSE 0; RESP 0; TEMP -17.7; TEMP 0
== END 2024-04-18 17:37 | disposition left against medical advice (07) ==
PROVIDERS: Emergency Provider Nurse Practitioner; PCP Internal Medicine
DX: Z53.21 Procedure and treatment not carried out due to patient leaving prior to being seen by health care provider (principal)

== ENCOUNTER 2024-06-16 13:58 | Emergency (ER) | payer OTHER, SELFPAY ==
[2024-06-16 14:13] VITALS: BP 166/101; PULSE 72; RESP 20; TEMP 36.9; O2SAT 97; BMI 42.0
--- NOTE | 2024-06-16 14:16 | ED_ITS ---
Discharge Plan Disposition Patient Disposition: Home, Self-Care Condition: Good Prescriptions Prescriptions: New azithromycin [Zithromax] 250 mg tablet 250 mg PO UD DOSE PK Qty: 6 0RF Rx Instructions: Take two (2) tablets today, then one (1) tablet days #2 thru #5 [id number] [Bromfed DM] 2-30-10 mg/5 mL Syrup 5 ml PO Q6H PRN (Reason: Cough) Qty: 240 0RF ondansetron 4 mg Tablet,Disintegrating 4 mg PO Q8H PRN (Reason: Nausea) Qty: 9 0RF methylprednisolone 4 mg Tablets,Dose Pack 4 mg PO DIRECTED 6 Days Qty: 21 0RF Rx Instructions: Take 1 pack as directed for 6 days No Action sulfamethoxazole-trimethoprim [Bactrim DS] 800-160 mg tablet 1 tab PO Q12H Qty: 20 0RF prednisone 20 mg tablet 20 mg PO BID Qty: 10 0RF Referrals Follow up/Referrals: Lino Cruz DO [Primary Care Provider] - See instructions Activity Restrictions/Add. Instructions Additional Instructions/Restrictions: Drink plenty of fluids. Take tylenol or ibuprofen for pain or fever. Take the medications as directed. Follow up with your regular doctor. GO TO THE ER FOR ANY WORSENING SYMPTOMS Clinical Impressions Clinical Impression: Pharyngitis, Acute viral syndrome Stand Alone Forms Stand Alone Forms: Work/School Release Instructions Patient Instructions: Sore Throat, DI for Pharyngitis/Tonsillopharyngitis -- Adult Print Language Print Language: Syriac Discharge ED Provider: Esteban Telles [facility] General Stated complaint: sore throat headache Mode of Arrival: Ambulatory Source of Information: Patient Time Seen by Provider: 06/16/24 14:16 Description of Symptoms (Recalled from Triage Doc. by RN): sore throat HEENT Symptoms (Recalled from RN notes): Yes Resp Symptoms (Recalled from RN notes): No Skin Symptoms (Recalled from RN notes): No MS Symptoms (Recalled from RN notes): No Functional Status (Recalled from RN notes): WNL History of Present Illness Provider Complaint: He states that for the past 3 days he has had fever, chills, sore throat, and malaise. Related Data Previous Rx's ?Medication ?Instructions ?Recorded prednisone 20 mg tablet 20 mg PO BID #10 tabs 03/04/24 sulfamethoxazole 800 1 tab PO Q12H #20 tabs 03/04/24 mg-trimethoprim 160 mg tablet (Bactrim DS) azithromycin 250 mg tablet 250 mg PO UD DOSE PK #6 tabs 06/16/24 (Zithromax) [id number] 5 ml PO Q6H PRN Cough #240 mL 06/16/24 2 mg-30 mg-10 mg/5 mL oral syrup (Bromfed DM) methylprednisolone 4 mg tablets in 4 mg PO DIRECTED 6 days #21 tabs 06/16/24 a dose pack ondansetron 4 mg disintegrating 4 mg PO Q8H PRN Nausea #9 tabs 06/16/24 tablet Allergies Allergy/AdvReac Type Severity Reaction Status Date / Time amoxicillin [AMOXICILLIN] Allergy Unknown Verified 03/04/24 17:17 cephalexin [From KEFLEX] Allergy Unknown Verified 03/04/24 17:17 clavulanic acid Allergy Unknown Verified 03/04/24 17:17 [From AUGMENTIN] Worker's Comp Is this a Worker's Comp case?: No [facility] Disclaimer: The information contained in this section may have been updated after the patient was seen, as this information can be updated by other users. Medical History Family history of diabetes mellitus Surgical History History of cardiac radiofrequency ablation History of placement of ear tubes 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 Smoking Status: Current every day smoker second hand exposure: No alcohol intake: current substance use type: marijuana current occupational status: unemployed and other Travel in the last 8 weeks: None household members: family housing: house current occupational exposures/hazards: No caffeine: Yes ROS Obtained: Yes All systems reviewed & no additional complaints except as documented Constitutional Constitutional: Reports chills and Reports fever(s) Eyes Eyes: Denies eye discharge ENT Ears, Nose, Mouth, and Throat: Reports as per HPI Cardiovascular Cardiovascular: Denies chest pain Respiratory Respiratory: Denies chest congestion and Reports cough Gastrointestinal Gastrointestingal: Reports nausea; Denies abdominal pain, constipation, cramping, diarrhea or vomiting Musculoskeletal Musculoskeletal: Denies arthralgias Integumentary/Breasts Skin/Breast: Denies rash Neurologic Neurologic: Denies paresthesias Physical Exam General General appearance: alert and in no apparent distress Head Head exam: atraumatic, normocephalic and normal inspection Eye Eye exam: Present normal appearance, PERRL and EOMI ENT ENT exam: Present mucous membranes moist and normal external ear exam Expanded ENT Exam TM/Canal exam: Bilateral TM: erythema and bulging Nose exam: Absent sinus tenderness Mouth exam: Present normal external inspection; Absent drooling Teeth exam: Present normal inspection Throat exam: Present tonsillar erythema, tonsillomegaly and tonsillar exudate Neck Neck exam: Present normal inspection, full ROM and trachea midline; Absent tenderness, meningismus or lymphadenopathy Chest Chest inspection: Present normal inspection and symmetric chest wall rise; Absent tenderness Respiratory Respiratory exam: Present normal lung sounds bilaterally; Absent respiratory distress, wheezes, stridor or accessory muscle use Cardiovascular Cardiovascular exam: Present regular rate and normal rhythm; Absent systolic murmur or diastolic murmur Abdominal Exam Abdominal exam: Present soft and normal bowel sounds; Absent distention, tenderness, guarding, rebound or rigidity Extremities Exam Extremities exam: Present normal inspection and normal capillary refill; Absent calf tenderness Back Exam Back exam: Present normal inspection and full ROM; Absent tenderness, CVA tenderness (R) or CVA tenderness (L) Neurological Exam Neurological exam: Present alert, oriented X3 and CN II-XII intact Psychiatric Psychiatric exam: Present normal affect and normal mood Skin Skin exam: Present warm, dry, intact and normal color Medical Decision Making Medical Records Medical records reviewed: No I reviewed the patient's medical records. Screening: Per USPSTF and CDC recommendations, given the prevalence of disease in our region, it is our hospital?s policy to screen for HIV and viral Hepatitis for all patients aged 18 and over and those with ongoing risk factors. Herve Inquiry Pt receiving controlled substance: No Vital Signs: 06/16/24 14:13 Temperature 98.4 F Temperature Source Oral Pulse Rate [Left Radial] 72 Respiratory Rate 20 Blood Pressure [Left Arm] 166/101 H Blood Pressure Mean [Left Arm] 122 02 Sat by Pulse Oximetry 97 Lab Data Lab results reviewed: Yes I reviewed the patient's lab results.
[2024-06-16 14:37] LABS: UTC Strep Screen (Rapid) Negative (Negative)
[2024-06-16 14:57] VITALS: BP 166/101; PULSE 72; RESP 20; TEMP 36.9
== END 2024-06-16 15:01 | disposition home or self-care (01) ==
PROVIDERS: Emergency Provider Nurse Practitioner Family; PCP Internal Medicine
DX: J02.9 Acute pharyngitis, unspecified (principal); R50.9 Fever, unspecified; R53.81 Other malaise; B34.9 Viral infection, unspecified
CPT/HCPCS: 87635; 87880; 99212; 99214; G0463

== ENCOUNTER 2024-07-21 15:10 | Outpatient (CLI) | payer OTHER, SELFPAY ==
[2024-07-21 20:14] LABS: Basophils # 0.1 K/mm3 (0-0.2); Basophils % 0.6 % (0.1-2.0); Eosinophils # 0.1 K/mm3 (0.0-0.4); Eosinophils % 0.5 % (0.1-12.0); Hematocrit 44.7 % (42.0-52.0); Hemoglobin 15.5 g/dL (14.1-18.0); Lymphocytes # 2.2 K/mm3 (0.7-4.5); Lymphocytes % 20.5 % (10-50); Mean Corpuscular HGB Conc 34.7 g/dL (31.8-35.4); Mean Corpuscular Hemoglobin 29.3 pg (27.0-31.2); Mean Corpuscular Volume 84.4 fl (80-94); Mean Platelet Volume 9.8 fl (7.4-10.4); Monocytes # 0.5 K/mm3 (0.1-1.0); Monocytes % 4.4 % (1.7-9.3); Neutrophils # 7.7 K/mm3 (1.8-7.8); Platelet Count 278 K/mm3 (142-424); Red Cell Distribution Width 13.6 % (11.5-17.5); White Blood Count 10.4 K/mm3 (4.8-10.8)
[2024-07-21 20:23] LABS: Alanine Aminotransferase 34 U/L (12-78); Albumin Level 4.6 g/dl (3.5-5.0); Albumin/Globulin Ratio 1.5 (1.1-1.8); Alkaline Phosphatase 97 U/L (38-126); Anion Gap 15.9 mEq/L (5-15); Aspartate Amino Transferase 29 U/L (17-59); Bilirubin,Total 0.7 mg/dl (0.2-1.3); Blood Urea Nitrogen 14 mg/dl (9-20); Calcium 9.3 mg/dl (8.4-10.2); Carbon Dioxide 23 mmol/L (22.0-30.0); Chloride 106 mmol/L (98-107); Chol/HDL Ratio 4.4 (1-3.5); Cholesterol 153 mg/dl (140-200); Estimated Glomerular Filt Rate 120 ml/min (>60); GFR (African American) 145 ML/MIN (>60); Glucose 80 mg/dl (74-100); HDL Cholesterol 35 mg/dl (40-60); Potassium 3.9 mmoL/L (3.5-5.1); Sodium 141 mmol/L (136-145); Total Protein,Serum 7.6 g/dl (6.3-8.2); Triglycerides 121 mg/dl (30-150); VLDL Cholesterol 24 mg/dL (0-40)
[2024-07-21 20:25] LABS: Hemoglobin A1C 5.1 % (4.0-6.0)
[2024-07-21 20:34] LABS: Direct LDL Cholesterol 104.09 mg/dL (100-129)
[2024-07-21 20:40] LABS: 25-OH Vitamin D, Total 17.4 ng/mL (30-100)
[2024-07-21 21:18] LABS: HIV (1&2) Antibody Rapid NONREACTIVE (NONREACTIVE)
[2024-07-23 05:11] LABS: HCV Ab Non Reactive (Non Reactive)
== END 2024-07-21 23:59 | disposition home or self-care (01) ==
LOC: LAB.DROPOF 07-22 09:34
PROVIDERS: PCP Internal Medicine; Visit Provider Internal Medicine
DX: E66.01 Morbid (severe) obesity due to excess calories (principal); Z91.89 Other specified personal risk factors, not elsewhere classified; Z68.41 Body mass index [BMI] 40.0-44.9, adult; K76.0 Fatty (change of) liver, not elsewhere classified; R10.11 Right upper quadrant pain; Z11.59 Encounter for screening for other viral diseases; R53.83 Other fatigue
CPT/HCPCS: 80053; 80061; 82306; 83036; 85025; 86803; 87389

== ENCOUNTER 2024-10-03 12:49 | Emergency (ER) | payer OTHER, SELFPAY ==
[2024-10-03 13:05] VITALS: BP 157/103; PULSE 83; RESP 17; TEMP 37.1; O2SAT 98; BMI 44.7
--- NOTE | 2024-10-03 13:12 | ED_ITS ---
Discharge Plan Disposition Patient Disposition: Home, Self-Care Condition: Good Prescriptions Prescriptions: New polymyxin B sulf-trimethoprim 10,000 unit- 1 mg/mL drops 2 drp ophthalmic (eye) Q6H 7 Days Qty: 10 0RF Rx Instructions: in left eye while awake; do not exceed 6 doses in 24 hours albuterol sulfate 90 mcg/actuation HFA aerosol inhaler 2 puff inhalation Q6H PRN (Reason: shortness of breath or wheezing) Qty: 8.5 0RF azithromycin [Zithromax Z-Michael] 250 mg tablet See Rx Instructions .ROUTE .COMPLEX 5 Days Qty: 6 0RF Rx Instructions: For 250 mg dose pack: take 500 mg today (day 1), then 250 mg for 4 days (days 2-5) methylprednisolone [Medrol (Michael)] 4 mg tablets,dose pack See Rx Instructions .Route .COMPLEX 6 Days Qty: 21 0RF Rx Instructions: taper pack; No Action lisinopril 10 mg tablet 10 mg PO DAILY Qty: 30 2RF Referrals Follow up/Referrals: Lino Cruz DO [Primary Care Provider] - See instructions Activity Restrictions/Add. Instructions Additional Instructions/Restrictions: *Monitor Temp, Over the counter Motrin or Tylenol as directed/as needed Tylenol every 4 hours and Motrin every 6 hours (as long as your family doctor has told you that you can take it) for fever or pain. and straight to ER if unable to lower temp less than 101.0 after medication given *Warm salt water gargles may help to soothe the throat *Throat Lozenges? *Warm fluids like tea with honey may help to soothe the throat? *Sleep elevated *Humidifier/Vaporizer Take medication as prescribed Use eye drops as prescribed Follow up IMMEDIATELY for new or worsening symptoms or no Noticeable improvement over the next 48-72 hours. 911 for difficulty breathing or swallowing Clinical Impressions Clinical Impression: Sinusitis, Conjunctivitis Instructions Patient Instructions: DI for Sinusitis, Albuterol, DI for Conjunctivitis Print Language Print Language: Bolivian Discharge ED Provider: Zoraida Morton [facility] General Stated complaint: wheezing, redness/swelling to L eye Mode of Arrival: Ambulatory Source of Information: Patient Limitations: No Limitations Time Seen by Provider: 10/03/24 13:12 Description of Symptoms (Recalled from Triage Doc. by RN): PATIENT C/O SOA AND REDNESS/DRAINAGE TO LEFT EYE HEENT Symptoms (Recalled from RN notes): Yes Resp Symptoms (Recalled from RN notes): Yes Skin Symptoms (Recalled from RN notes): No MS Symptoms (Recalled from RN notes): No Functional Status (Recalled from RN notes): WNL History of Present Illness Provider Complaint: Patient states that he has a hx of asthma and does not have an inhaler at home, States that he has been having sinus congestion/pressure, chest congestion and wheezing at times States that he has also woke up with his left eye draining and matted thinks he may have pink eye States that he has not taken his blood pressure medication yet Related Data Previous Rx's ?Medication ?Instructions ?Recorded lisinopril 10 mg tablet 10 mg PO DAILY #30 tabs 08/01/24 albuterol sulfate 90 mcg/actuation 2 puff inhalation Q6H PRN 10/03/24 aerosol inhaler shortness of breath or wheezing #8.5 grams azithromycin 250 mg tablet See Rx Instructions PO .COMPLEX 5 10/03/24 (Zithromax Z-Michael) days #6 tabs methylprednisolone 4 mg tablets in See Rx Instructions .Route 10/03/24 a dose pack (Medrol (Michael)) .COMPLEX 6 days #21 tabs polymyxin B sulfate 10,000 2 drp ophthalmic (eye) Q6H 7 days 10/03/24 unit-trimethoprim 1 mg/mL eye drops #10 mL Allergies Allergy/AdvReac Type Severity Reaction Status Date / Time amoxicillin (AMOXICILLIN) Allergy Unknown Verified 07/21/24 14:29 cephalexin (From KEFLEX) Allergy Unknown Verified 07/21/24 14:29 clavulanic acid (From Allergy Unknown Verified 07/21/24 14:29 AUGMENTIN) Worker's Comp Is this a Worker's Comp case?: No [facility] Disclaimer: The information contained in this section may have been updated after the patient was seen, as this information can be updated by other users. Medical History (Updated 10/03/24 @ 13:20 by Zoraida Morton APRN) Depression Anxiety History of gastroesophageal reflux (GERD) Hypertension Family history of diabetes mellitus Surgical History History of placement of ear tubes History of cardiac radiofrequency ablation 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 Smoking Status: Current every day smoker second hand exposure: No alcohol intake: current substance use type: marijuana current occupational status: unemployed and other Travel in the last 8 weeks: None household members: family housing: house current occupational exposures/hazards: No caffeine: Yes Have you lived/traveled outside [place] in past 30 days?: No Contact w/someone who lives/traveled outside US past 30 days?: No Exposure to someone with infectious disease in past 14 days?: No Do you have a fever (greater than 100.4 F or 38 C)?: No Have you tested positive for COVID-19: No Exposed to someone with COVID-19 in past 14 days?: No Do you have a sore throat?: No Do you have a cough?: No Do you have any weakness?: No Do you have any diarrhea?: No Are you experiencing any unusual bleeding?: No Do you have any muscle aches/pain?: No Do you have any abdominal pain?: No Are you experiencing loss of taste or smell?: No ROS Obtained: Yes All systems reviewed & no additional complaints except as documented and Yes Systems reviewed as appropriate & no additional complaints except as documented Constitutional Constitutional: Reports system reviewed and no additional complaints, except as documented and Reports as per HPI Eyes Eyes: Reports system reviewed and no additional complaints, except as documented, Reports as per HPI, Reports eye discharge (left) and Reports irritation (left) ENT Ears, Nose, Mouth, and Throat: Reports system reviewed and no additional complaints, except as documented, Reports as per HPI, Reports sinus pain and Reports sinus pressure Cardiovascular Cardiovascular: Reports system reviewed and no additional complaints, except as documented and Reports as per HPI Respiratory Respiratory: Reports system reviewed and no additional complaints, except as documented, Reports as per HPI, Reports chest congestion, Reports cough and Reports wheezing (at times hx of asthma out of inhaler at home) Gastrointestinal Gastrointestingal: Reports system reviewed and no additional complaints, except as documented and as per HPI Allergic/Immunologic Allergic/Immunologic: Reports wheezing (at times hx of asthma out of inhaler at home) Physical Exam General General appearance: alert and in no apparent distress Eye Eye exam: Present conjunctival redness (left) and discharge (left, with matting particles in eyelashes on left eye) ENT ENT exam: Present mucous membranes moist Expanded ENT Exam Nose exam: Present sinus tenderness Throat exam: Present other (PND noted) Respiratory Respiratory exam: Present normal lung sounds bilaterally; Absent respiratory distress or wheezes Cardiovascular Cardiovascular exam: Present regular rate, normal rhythm and normal heart sounds Neurological Exam Neurological exam: Present alert, oriented X3 and normal gait Medical Decision Making Medical Records Screening: Per USPSTF and CDC recommendations, given the prevalence of disease in our region, it is our hospital?s policy to screen for HIV and viral Hepatitis for all patients aged 18 and over and those with ongoing risk factors. Herve Inquiry Pt receiving controlled substance: No Herve was queried for this patient: No Vital Signs: 10/03/24 13:05 Temperature 98.7 F Temperature Source Oral Pulse Rate [Left Brachial] 83 Respiratory Rate 17 Blood Pressure [Left Arm] 157/103 H Blood Pressure Mean [Left Arm] 121 Blood Pressure Source [Left Arm] Automatic Cuff Blood Pressure Position [Left Arm] Sitting 02 Sat by Pulse Oximetry 98 Oxygen Delivery Method Room Air
[2024-10-03 13:20] VITALS: BP 157/103; PULSE 83; RESP 17; TEMP 37.1; O2SAT 98
== END 2024-10-03 13:22 | disposition home or self-care (01) ==
PROVIDERS: Emergency Provider Nurse Practitioner; PCP Internal Medicine
DX: H10.9 Unspecified conjunctivitis (principal); J32.9 Chronic sinusitis, unspecified
CPT/HCPCS: 99212; G0381

== ENCOUNTER 2024-12-09 08:20 | Emergency (ER) | payer OTHER, SELFPAY ==
[2024-12-09 08:28] VITALS: BP 148/83; PULSE 90; RESP 14; TEMP 36.9; O2SAT 97; BMI 43.5
[2024-12-09 08:31] VITALS: BP 142/89; PULSE 88; O2SAT 96
--- NOTE | 2024-12-09 08:32 | ECG_ITS ---
APPROVED REPORT Exam: Resting ECG HR:85 bpm ECG Measurements Heart Rate 85 AXES GA 150 P 25 QRSd 114 QRS 30 QT 340 T 2 QTc 383 Conclusion SINUS RHYTHM MODERATE INTRAVENTRICULAR CONDUCTION DELAY [110+ ms QRS DURATION] BORDERLINE ECG No STEMI Electronically signed by : JACOBY MULLIGAN, 12/10/2024 06:25:55
[2024-12-09 08:37] LABS: Coronavirus 19, PCR Not Detected (NotDetected); Influenza A, PCR Not Detected (NotDetected); Influenza B, PCR Not Detected (NotDetected)
--- NOTE | 2024-12-09 08:39 | ED_ITS ---
Discharge Plan Disposition Patient Disposition: Home, Self-Care Prescriptions Prescriptions: New budesonide 180 mcg/actuation aerosol powdr breath activated 1 inh inhalation DAILY Qty: 1 0RF albuterol sulfate 90 mcg/actuation HFA aerosol inhaler 1 inh inhalation Q6H PRN (Reason: shortness of breath or wheezing) Qty: 8.5 0RF pseudoephedrine HCl [Sudafed 12 Hour] 120 mg tablet extended release 120 mg PO BID PRN (Reason: nasal congestion) Qty: 7 0RF fluticasone furoate 27.5 mcg/actuation spray,suspension 1 spray intranasal DAILY Qty: 9.1 0RF Rx Instructions: into each nostril cetirizine 10 mg capsule 10 mg PO DAILY Qty: 14 0RF Referrals Follow up/Referrals: Lino Cruz DO [Primary Care Provider] - See instructions Activity Restrictions/Add. Instructions Additional Instructions/Restrictions: Take 4 puffs every 4 hours of your albuterol inhaler for the next 2 days. Clinical Impressions Clinical Impression: Acute asthma exacerbation Instructions Patient Instructions: DI for Asthma -- Adult Print Language Print Language: [place] Discharge ED Provider: Kaitlin Rader General Adult HPI General Chief complaint: Ear Stated complaint: Pain in R ear, congestion, SOA, headache, V/D Time Seen by Provider: 12/09/24 08:39 Mode of Arrival: Ambulatory Source of Information: Patient Description of Symptoms (Recalled from ER Triage Doc. by RN): pt presents to ED with c/o right ear pain ongoing for 1 day. runny nose, cough, wheezing, shortness of air ongoing for 2 days. pt reports nausea and diarrhea began yesterday. History of Present Illness HPI narrative: Patient is a 24-year-old with past medical history significant for asthma presents to the emergency department with cough congestion wheezing shortness of air nausea without vomiting and diarrhea. Patient also developed right ear pain for 1 day that started yesterday. Patient does not take any medicines for his asthma at this time. He believes he has a flu and has been around sick contacts. Patient has intermittent ringing in the right ear. Still able to tolerate p.o. has not taken any medications for symptoms at this time. Patient is coughing up white phlegm. Related Data Previous Rx's ?Medication ?Instructions ?Recorded albuterol sulfate 90 mcg/actuation 1 inh inhalation Q6H PRN shortness 12/09/24 aerosol inhaler of breath or wheezing #8.5 grams budesonide 180 mcg/actuation 1 inh inhalation DAILY #1 ea 12/09/24 breath activated powder inhaler cetirizine 10 mg capsule 10 mg PO DAILY allergy symptoms 12/09/24 #14 caps fluticasone furoate 27.5 1 spray intranasal DAILY #9.1 mL 12/09/24 mcg/actuation nasal spray,suspension pseudoephedrine HCl 120 mg 120 mg PO BID PRN nasal congestion 12/09/24 tablet,extended release (Sudafed #7 tabs 12 Hour) Allergies Allergy/AdvReac Type Severity Reaction Status Date / Time amoxicillin (AMOXICILLIN) Allergy Unknown Hives Verified 12/09/24 08:38 cephalexin (From KEFLEX) Allergy Unknown Hives Verified 12/09/24 08:38 clavulanic acid (From Allergy Unknown Hives Verified 12/09/24 08:38 AUGMENTIN) Penicillins Allergy Unknown Hives Verified 12/09/24 08:38 PFSH PFS Disclaimer: The information contained in this section may have been updated after the patient was seen, as this information can be updated by other users. Medical History (Updated 12/09/24 @ 09:48 by Kaitlin Rader MD) Depression Anxiety History of gastroesophageal reflux (GERD) Hypertension Family history of diabetes mellitus Surgical History History of placement of ear tubes History of cardiac radiofrequency ablation 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 Smoking Status: Current every day smoker second hand exposure: No alcohol intake: current substance use type: marijuana current occupational status: unemployed and other Travel in the last 8 weeks: None household members: family housing: house current occupational exposures/hazards: No caffeine: Yes Have you lived/traveled outside US in past 30 days?: No Contact w/someone who lives/traveled outside US past 30 days?: No Exposure to someone with infectious disease in past 14 days?: No Do you have a fever (greater than 100.4 F or 38 C)?: No Have you tested positive for COVID-19: No Exposed to someone with COVID-19 in past 14 days?: No Do you have a sore throat?: No Do you have a cough?: No Do you have any weakness?: No Do you have any diarrhea?: Yes Are you experiencing any unusual bleeding?: No Do you have any muscle aches/pain?: No Do you have any abdominal pain?: No Are you experiencing loss of taste or smell?: No Other Medical History Have you received the Flu Vaccine for this season: No Have you received the Pneumonia Vaccine: No ROS Obtained: Yes All systems reviewed & no additional complaints except as documented Physical Exam General General appearance: alert and in no apparent distress ENT ENT exam: Present mucous membranes moist, TM's normal bilaterally (Right TM with bulging no erythema, normal light reflex) and other (Erythema of the posterior pharynx without tonsillar swelling) Chest Chest inspection: Present normal inspection and symmetric chest wall rise Respiratory Respiratory exam: Present wheezes (Inspiratory and expiratory wheezing throughout all lung henry) Cardiovascular Cardiovascular exam: Present regular rate and normal rhythm Abdominal Exam Abdominal exam: Present soft; Absent tenderness Neurological Exam Neurological exam: Present alert and oriented X3 Medical Decision Making Medical Records Screening: Per USPSTF and CDC recommendations, given the prevalence of disease in our region, it is our hospital?s policy to screen for HIV and viral Hepatitis for all patients aged 18 and over and those with ongoing risk factors. Herve Inquiry Pt receiving controlled substance: No Vital Signs: 12/09/24 08:28 12/09/24 08:31 Temperature 98.5 F Temperature Source Oral Pulse Rate 88 Pulse Rate [Left Radial] 90 Respiratory Rate 14 Blood Pressure 142/89 H Blood Pressure [Right Arm] 148/83 H Blood Pressure Mean [Right Arm] 104 Blood Pressure Source [Right Arm] Automatic Cuff Blood Pressure Position [Right Arm] Supine 02 Sat by Pulse Oximetry 97 96 Oxygen Delivery Method Room Air Room Air Lab Data Lab Results 12/09/24 08:29: SARS-CoV-2 (PCR) Not detected, Influenza A Untype (PCR) Not detected, Influenza Type B (PCR) Not detected Orders (Tests/Meds): ED MEDICATIONS Discontinued Medications Generic Name Dose Route Start Last Admin Trade Name Freq PRN Reason Stop Dose Admin Acetaminophen 1,000 mg 12/09/24 08:48 12/09/24 09:04 Acetaminophen 500mg Tab PO 12/09/24 08:49 1,000 mg ONCE ONE Administration Albuterol/Ipratropium 9 ml 12/09/24 08:46 12/09/24 09:04 Ipratropium/Albuterol 3 Ml Neb IH 12/09/24 08:47 9 ml ONCE ONE Administration Dexamethasone 12 mg 12/09/24 08:46 12/09/24 09:04 Dexamethasone 4mg Tablet PO 12/09/24 08:47 12 mg ONCE ONE Administration Pseudoephedrine HCl 30 mg 12/09/24 08:49 12/09/24 09:05 Pseudoephedrine 30mg Tablet PO 12/09/24 08:50 30 mg ONCE ONE Administration ORDERS Category Date Time Status Chest XR 2 view (NOT portable) [XR chest 2V] Stat Exams 12/09/24 08:46 Completed Rapid PCR Covid and Flu A/B Stat Lab 12/09/24 08:29 Completed Medical Decision Narrative: In summary, this 24-year-old male presents to the emergency department today with shortness of breath and right ear pain. On initial evaluation patient is hemodynamically stable saturating appropriately on room air afebrile no acute. Differential diagnosis includes but is not limited to viral syndrome including COVID flu RSV, acute asthma exacerbation, pneumonia, otitis media, sinusitis. Based on these concerns, I ordered COVID flu RSV swab chest x-ray. Exam consistent with right middle ear effusion without signs of bacterial infection. ECG personally interpreted demonstrates normal sinus rhythm no ST elevation ST depression or T wave inversions concerning for ischemia. Patient received 3 DuoNeb's, Decadron, Sudafed for treatment. XR personally interpreted demonstrates increased right perihilar lung markings without focal opacities. On reassessment Pt has improvement in wheezing on exam, improvement of dyspnea. Pt does not have asthma medications but does have access to PCP. Will send albuterol and budesonide inhalers for asthma management. Instructed to use albuterol 4 puffs every 4 hours for next 2 days for acute asthma exacerbation. Of note, social determinants of health include limited health literacy. Critical Care Critical Care Time Critical Care Time: No
--- NOTE | 2024-12-09 08:46 | XR_ITS ---
FINAL REPORT CLINICAL HISTORY: soa, congestion x 2 days COMPARISON: 01/02/2017 FINDINGS: No acute pulmonary density is evident. There is no evidence of effusion or other pleural disease. The mediastinum has a normal appearance. The cardiac silhouette is unremarkable. IMPRESSION: Unremarkable chest exam. Reviewed, Interpreted and Dictated by Tacos Burdick MD Transcribed by Danielle Higuera Authenticated and [facility]
[2024-12-09 09:00] VITALS: BP 152/84; PULSE 99; O2SAT 98
[2024-12-09] MEDS: DEXAMETHASONE 4MG TABLET 12 MG PO (09:04)
[2024-12-09] MEDS: ACETAMINOPHEN 500MG TAB 1000 MG PO (09:04)
[2024-12-09] MEDS: IPRATROPIUM/ALBUTEROL 3 ML NEB 9 ML IH (09:04)
[2024-12-09] MEDS: PSEUDOEPHEDRINE 30MG TABLET 30 MG PO (09:05)
[2024-12-09 09:31] VITALS: BP 160/76; PULSE 89; O2SAT 97
[2024-12-09 09:53] VITALS: BP 160/76; PULSE 89; RESP 14; TEMP 36.9; O2SAT 97
== END 2024-12-09 09:54 | disposition home or self-care (01) ==
PROVIDERS: Emergency Provider Student in an Organized Health Care Education/Training Program; PCP Internal Medicine
DX: J45.901 Unspecified asthma with (acute) exacerbation (principal)
CPT/HCPCS: 71046; 87636; 93005; 94640; 99284; J7620; J8540

== ENCOUNTER 2025-02-24 19:33 | Emergency (ER) | payer OTHER, SELFPAY ==
--- OUTSIDE RECORDS SUMMARY | 2025-02-24 19:40 | XMS_ITS | Clinical Summary ---
Author Organization Healthcare Address [address] [id number] Care Team Providers Care Shell Coremaker Name Role Phone Lino Cruz DO Primary Care Provider [phone] Allergies Active Allergy Reactions Criticality Noted Date Comments Amoxicillin-Pot Clavulanate Rash Low 06/27/20 11 Cephalexin Hives Medium 06/17/2023 Clavulanic Acid Unknown - Patient st ates they do not know rxn details Low 06/17/2023 Lactose Unknown - Patient st ates they do not know rxn details Low 08/16/2014 Milk (Cow) Unknown - Patient st ates they do not know rxn details Low 08/16/2014 Other Unknown - Patient st ates they do not know rxn details Low 08/16/2014 Penicillins Unknown - Patient st ates they do not know rxn details Low 04/28/2017 Medications Vitamin D3 1.25 MG (94189 UT) capsule 3 Active cholecalciferol (Vitamin D-3) 50 MCG (2000 UT) capsule 3 Active ofloxacin (Floxin Otic) 0.3 % otic solution Apply 4 drops to draining ear three times a day for 5 days 5 mL 3 Active Additional Information Patient not taking.Reported on 09/08/2023 hydroCHLOROthia zide (HYDRODiuril) 12.5 MG tablet 3 Active losartan (Cozaar) 25 MG tablet 3 Active Family History Medical History Relation Name Comments Conversions - Other Brother Omphaloc carrie Crohn's disease Cousin Cardiac Arrest Father Coronary artery disease Father Kidney failure Father Conversions - Other Mother Smoker Diabetes Mother Learning disabilities Mother Ulcers Mother Asthma Other 1 Asthma Other 2 Relation Name Status Comments Brother Cousin Father Mother Other 1 Other 2 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 Tobacco Use Types Packs/Day Years Used Date Smoking Tobacco: Some Days Cigarettes Smokeless Tobacco: Never Tobacco Cessation:Ready to Q uit: Not Asked; Counseling Given: Not Answered Alcohol Use Standard Drinks/Week Comments Yes 0 (1 standard drink = 0.6 oz pur e alcohol) PHQ-2 Answer Date Recorded Patient Health Questionnaire-2 Score 3 12/29/2022 PHQ-9 Answer Date Recorded Patient Health Questionnaire-9 Score 9 12/29/2022 PHQ-2A Answer Date Recorded Patient Health Questionnaire-2 Score 3 12/29/2022 Sex and Gender Information Value Date Recorded Sex Assigned at Not on file Legal Sex Male 7:47 PM EDT Gender Identity Not on file Sexual Orientation Not on file Last Filed Vital Signs Vital Sign Reading Time Taken Comments Blood Pressure 154/93 12/29/2022 9:10 AM EDT Pulse 78 12/29/2022 9:10 AM EDT Temperature 36.5 C (97.7 F) 12/29/2022 9:10 AM EDT Respiratory Rate - - Oxygen Saturation 97% 12/29/2022 9:10 AM EDT Inhaled Oxygen Concentration - - Weight 150 kg (330 lb) 09/08/2023 8:13 AM EST Height 188 cm (6' 2 ) 09/08/2023 8:13 AM EST Body Mass Index 42.37 09/08/2023 8:13 AM EST Plan of Treatment Health Maintenance Due Date Last Done Comments [facility]-HIV Screening 2001 [facility]-Hepatitis C Screening 2001 [facility]-Infant/Child/Adol SDOH Screenings 2001 [facility]-Hepatitis A Vaccines (2 of 2 - 2-dose series) 09/06/2013 03/07/2013 HPV Vaccines (1 - Male 3-dose series) 2016 [facility]- SDOH Screenings 2019 [facility]-Adult SDOH Screenings 2019 [facility]-DTaP,Tdap,and Td Vaccines (7 - Td or Tdap) 03/07/2023 03/07/2013, 06/13/2005, 11/25/2002, Additional history exists [facility]-Depression Screening 12/30/2023 12/29/2022, 12/20 [id number] Vaccine ( - 2024-25 season) 2024 [facility]-Influenza Vaccine (Season Ended) 2025 07/23/2011, 06/17/2010, 07/20/2008, Additional history exists [facility]-Zoster Vaccines (1 of 2) 2051 03/07/2013, 07/14/2002 [facility]-HIB Vaccines Completed 06/14/2002, 02/2002, 2001 [facility]-Hepatitis B Vaccines Completed 002, 2001, 2001 [facility]-IPV Vaccines Aged Out 06/13/2005, 05/2002, 2001, Additional history exists No longer eligible based on patient's age to complete this topic [facility]-Varicella Vaccines Completed 03/07/2013, 2001 [facility]-Obesity Intervention Completed 023, 09/08/2023, 08/26/2023 [facility]-Pneumococcal Vaccine: Pediatrics (0 to 5 Years) and At-Risk Patients (6 to 49 Years) Aged Out No longer eligible based on patient's age to complete this topic [facility]-Rotavirus Vaccines Aged Out No lo nger eligible based on patient's age to complete this topic Insurance [place] [id number] [employer] Care Teams Shell Coremaker Relationship Specialty Start Date End Date Lino Cruz DO [address] [place] [address] ASIA [place] [id number] PCP - General 07/23/23
[2025-02-24 19:41] VITALS: BP 192/112; PULSE 85; RESP 16; TEMP 36.7; O2SAT 97; BMI 45.5
--- NOTE | 2025-02-24 19:46 | CT_ITS ---
PROCEDURE INFORMATION: Exam: CT Lumbar Spine Without Contrast Exam date and time: 02/24/2025 8:02 PM Age: 24 years old Clinical indication: Low back pain TECHNIQUE: Imaging protocol: Computed tomography of the lumbar spine without contrast. Radiation optimization: All CT scans at this facility use at least one of these dose optimization techniques: automated exposure control; mA and/or kV adjustment per patient size (includes targeted exams where dose is matched to clinical indication); or iterative reconstruction. COMPARISON: CR XR SCOLIOSIS SURVEY 03/20/2023 4:25 PM FINDINGS: Bones/joints: No acute fracture. Normal alignment. L1/2: No significant disc herniation or bulge identified. No central canal or neural foraminal narrowing. L2/3: [id number] broad-based disc bulge identified. Bjsx-na-ychuxenv central canal and bilateral neural foraminal narrowing. L3/4: No significant disc herniation or bulge. No central canal or neural foraminal narrowing. L4/5: Gohr-wj-hnyunopn broad-based disc bulge identified. Mild central canal narrowing. [id number]-gz-eojidkhh bilateral neural foraminal narrowing. L5/S: No significant disc herniation or bulge identified. No central canal or neural foraminal narrowing. Soft tissues: Unremarkable. IMPRESSION: L2/3 and L4/5 broad-based disc bulge contributing to central canal and neural foraminal narrowing. Consider dedicated MRI for confirmation and optimal imaging evaluation as CT scan may exaggerate findings.
--- NOTE | 2025-02-24 19:47 | ED_ITS ---
<Statement entered by Oliva Mancera MD - 02/24/25 22:59> I was consulted by the DIDI, and we discussed the complexity of the problems being addressed. I approved the treatment and management plan for this patient's care in the emergency department, thus performing a substantive portion of the medical decision making. Oliva Mancera MD, BRENDA, FACEP Discharge Plan Disposition Patient Disposition: Home, Self-Care Prescriptions Prescriptions: New methocarbamol 750 mg tablet 750 mg PO Q8H Qty: 90 0RF ibuprofen 800 mg tablet 800 mg PO Q8H PRN (Reason: pain) Qty: 20 0RF metronidazole 500 mg tablet 1,000 mg PO ONCE 1 Days Qty: 2 0RF No Action budesonide 180 mcg/actuation aerosol powdr breath activated 1 inh inhalation DAILY Qty: 1 0RF albuterol sulfate 90 mcg/actuation HFA aerosol inhaler 1 inh inhalation Q6H PRN (Reason: shortness of breath or wheezing) Qty: 8.5 0RF pseudoephedrine HCl [Sudafed 12 Hour] 120 mg tablet extended release 120 mg PO BID PRN (Reason: nasal congestion) Qty: 7 0RF fluticasone furoate 27.5 mcg/actuation spray,suspension 1 spray intranasal DAILY Qty: 9.1 0RF Rx Instructions: into each nostril cetirizine 10 mg capsule 10 mg PO DAILY Qty: 14 0RF Referrals Follow up/Referrals: Dash Chavez MD [Primary Care Provider, Family Practice] - See instructions Activity Restrictions/Add. Instructions Additional Instructions/Restrictions: Please follow-up with your primary care physician to have your urine retested as it did have blood in it at the ER. Also your urine tested positive for trichomonas and needs to be treated with Flagyl this is a one-time dose of Flagyl. Your partner also needs to be treated for trichomonas. Clinical Impressions Clinical Impression: Back pain, Hematuria, Infection due to trichomonas Instructions Patient Instructions: DI for Low Back Pain Print Language Print Language: Polish Discharge ED Provider: Oliva Mancera General Adult HPI General Chief complaint: Back Pain/Injury Stated complaint: severe back pain for a week Time Seen by Provider: 02/24/25 19:36 Mode of Arrival: Ambulatory Source of Information: Patient Description of Symptoms (Recalled from ER Triage Doc. by RN): Pt presents with c/o bilateral lower back pain with no known injury. Pt reports pain began approx 1 week ago with worsening today while at work. Pt reports intermittent numbness to BLE with pain increasing when lying flat or sitting for long periods of time. Pt denies dysuria or any trouble urinating. History of Present Illness HPI narrative: This is a 24-year-old male who presents to the ED today with complaint of bilateral lower back pain that has been going on for the past week. He states that he has not had any traumatic injury other than a fall down a hill when he was in middle school. States that he has pain when he lies down or sits down for long time. States that if he is up on his feet for a while his back does not hurt as bad. He has report intermittent numbness and tingling in bilateral lower extremities. He states that it comes and goes but at this current time he has tingling in his left foot but not in his left leg. Patient denies any bowel or bladder changes. No saddle anesthesias. No other associated signs or symptoms at this time of note his blood pressure is 192/112. Patient states he does not take his blood pressure medication. He says he just does not remember. Related Data Previous Rx's ?Medication ?Instructions ?Recorded albuterol sulfate 90 mcg/actuation 1 inh inhalation Q6 H PRN shortness 12/09/24 aerosol inhaler of breath or wheezing #8.5 g randal budesonide 180 mcg/actuation 1 inh inhalation DAILY #1 ea 12/09/24 breath activated powder inhaler cetirizine 10 mg capsule 10 mg PO DAILY allergy sympt oms 12/09/24 #14 caps fluticasone furoate 27.5 1 spray intranasal DAILY #9. 1 mL 12/09/24 mcg/actuation nasal spray,suspension pseudoephedrine HCl 120 mg 120 mg PO BID PRN nasal con gestion 12/09/24 tablet,extended release (Sudafed #7 tabs 12 Hour) ibuprofen 800 mg tablet 800 mg PO Q8H PRN pain #20 t abs 02/24/25 methocarbamol 750 mg tablet 750 mg PO Q8H #90 tabs 03/15 metronidazole 500 mg tablet 1,000 mg (2 x 500 mg) PO O NCE 1 02/24/25 day #2 tabs Allergies Allergy/AdvReac Type Severity Reaction Status Date / Time amoxicillin (AMOXICILLIN) Allergy Unknown Hives Verified 12/09/24 08:38 cephalexin (From KEFLEX) Allergy Unknown Hives Verified 12/09/24 08:38 clavulanic acid (From Allergy Unknown Hives Verified 12/09/24 08:38 AUGMENTIN) Penicillins Allergy Unknown Hives Verified 12/09/24 08:38 [facility] Disclaimer: The information contained in this section may have been updated after the patient was seen, as this information can be updated by other users. Medical History (Updated 02/24/25 @ 21:47 by Naz Pulliam (ED), MONUMENT STONECUTTER) Depression Anxiety History of gastroesophageal reflux (GERD) Hypertension Family history of diabetes mellitus Surgical History History of placement of ear tubes History of cardiac radiofrequency ablation 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 Smoking Status: Current every day smoker second hand exposure: No alcohol intake: current substance use type: marijuana current occupational status: unemployed and other Travel in the last 8 weeks?: None household members: family housing: house current occupational exposures/hazards: No caffeine: Yes Have you lived/traveled outside [place] in past 30 days?: No Contact w/someone who lives/traveled outside US past 30 days?: No Exposure to someone with infectious disease in past 14 days?: No Do you have a fever (greater than 100.4 F or 38 C)?: No Have you tested positive for COVID-19?: No Exposed to someone with COVID-19 in past 14 days?: No Do you have a sore throat?: No Do you have a cough?: No Do you have any weakness?: No Do you have any diarrhea?: No Are you experiencing any unusual bleeding?: No Do you have any muscle aches/pain?: No Do you have any abdominal pain?: No Are you experiencing loss of taste or smell?: No Other Medical History Have you received the Flu Vaccine for this season: No Have you received the Pneumonia Vaccine: No ROS Obtained: Yes Systems reviewed as appropriate & no additional complaints except as documented Physical Exam General General appearance: alert and in no apparent distress Head Head exam: normocephalic Eye Eye exam: Present PERRL and EOMI ENT ENT exam: Present normal oropharynx and mucous membranes moist Neck Neck exam: Present full ROM and trachea midline Respiratory Respiratory exam: Present normal lung sounds bilaterally Cardiovascular Cardiovascular exam: Present regular rate, normal rhythm, normal heart sounds, +S1 and +S2 Abdominal Exam Abdominal exam: Present soft and normal bowel sounds Extremities Exam Extremities exam: Present normal inspection, full ROM and normal capillary refill Back Exam Back exam: Present tenderness and vertebral tenderness Neurological Exam Neurological exam: Present alert and oriented X3 Skin Skin exam: Present warm, dry and intact Medical Decision Making Medical Records Screening: Per USPSTF and CDC recommendations, given the prevalence of disease in our region, it is our hospital?s policy to screen for HIV and viral Hepatitis for all patients aged 18 and over and those with ongoing risk factors. Herve Inquiry Pt receiving controlled substance: No Herve was queried for this patient: No Vital Signs: 02/24/25 19:41 02/24/25 20:31 02/24/25 21:00 Temperature 98.1 F Temperature Source Oral Pulse Rate 81 89 Pulse Rate [Radial] 85 Respiratory Rate 16 Blood Pressure 150/88 H 153/83 H Blood Pressure [Right Arm] 192/112 H Blood Pressure Mean 113 123 Blood Pressure Mean [Right Arm] 138 Blood Pressure Position [Right Arm] Sitting 02 Sat by Pulse Oximetry 97 98 98 Oxygen Delivery Method Room Air Lab Data Lab Results 02/24/25 20:37: Urine Color Yellow, Urine Appearance Clear, Urine pH 6.0, Ur Specific [place] >= 1.030, Urine Protein Negative, Urine Glucose (UA) Negative, Urine Ketones Negative, Urine Blood 2+ A, Urine Nitrate Negative, Urine Bilirubin Negative, Urine Urobilinogen 0.2, Ur Leukocyte Esterase Negative, Urine RBC 10-20, Urine WBC Occasional, Ur Squamous Epith Cells Occasional, Urine Bacteria 2+, Urine Trichomonas 1+ Orders (Tests/Meds): ED MEDICATIONS Discontinued Medications Generic Name Dose Route Start Last Admin Trade Name Freq PRN Reason Stop Dose Admin Ketorolac Tromethamine 60 mg 02/24/25 19:46 02/24/25 19:57 Ketorolac 60mg/2ml Vial IM 02/24/25 19:47 60 mg ONCE ONE Administration Orphenadrine Citrate 60 mg 02/24/25 19:46 02/24/25 19:58 Orphenadrine Citrate 60mg/2ml Vial IM 02/24/25 19:47 60 mg ONCE ONE Administration ORDERS Category Date Time Status CT lumbar spine wo con Stat Cat Scan 02/24/25 19:46 Taken Urinalysis and Microscopic Stat Lab 02/24/25 20:37 Completed Urine Culture Stat Micro 02/24/25 20:37 Received Medical Decision Narrative: patient is a 24-year-old male presenting to the emergency department for evaluation of low back pain for the past week. Back pain is worse with lying down, better with standing. Patient is hemodynamically stable, elevated blood pressure due to patient not taking his blood pressure medication however nontoxic-appearing upon arrival, afebrile. Differential diagnosis includes low back pain strain, muscle strain or sprain, among others. Workup will be conducted with specific imaging and a urinalysis. Initial inventions include analgesics. Initial workup reviewed by me does red blood cells in his urine but within the absence of any flank pain or dysuria I will have patient follow-up outpatient to have a urinalysis repeated. He does have trichomonas in his urine so we will treat that outpatient as well. Patient denies any nausea, vomiting or abdominal pain. Denies flank pain. Low suspicion of a kidney stone so I deferred a CT scanning of his abdomen and pelvis. Critical Care Critical Care Time Critical Care Time: No
[2025-02-24] MEDS: KETOROLAC 60MG/2ML VIAL 60 MG IM (19:57)
[2025-02-24] MEDS: ORPHENADRINE CITRATE 60MG/2ML VIAL 60 MG IM (19:58)
[2025-02-24 20:31] VITALS: BP 150/88; PULSE 81; O2SAT 98
[2025-02-24 21:00] VITALS: BP 153/83; PULSE 89; O2SAT 98
[2025-02-24 21:00] LABS: Microscopic, Urine URINE MICROSCOPIC (MICROSCOPIC)
[2025-02-24 21:04] LABS: Appearance,Urine CLEAR (Clear); Bilirubin,Urine Negative (Negative); Blood, Urine 2+ (Negative); Color,Urine YELLOW (Yellow); Glucose,Urine (UA) Negative (Negative); Ketones,Urine Negative (Negative); Leukocyte Esterase,Urine Negative (Negative); Nitrate,Urine Negative (Negative); Protein,Urine Negative (Negative); Specific Gravity, Urine >= 1.030 (1.005-1.030); Urobilinogen,Urine 0.2 EU/dl (0.2)
[2025-02-24 21:25] LABS: Bacteria,Urine 2+ /lpf; Squamous Epithelial Cell,Urine Occasional #/hpf (0-5); Trichomonas,Urine 1+ /lpf; WBC,Urine Occasional #/hpf (0-3)
--- NOTE | 2025-02-24 21:37 | PC.NURSE ---
radiology contacted and asked about delayed CT read, [facility] to be contacted.
[2025-02-24 22:00] VITALS: BP 147/88; PULSE 83; O2SAT 99
[2025-02-24 22:02] VITALS: BP 147/88; PULSE 86; RESP 16; TEMP 37.1; O2SAT 100
== END 2025-02-24 22:10 | disposition home or self-care (01) ==
PROVIDERS: Nurse Practitioner; Emergency Provider Student in an Organized Health Care Education/Training Program; PCP Family Medicine
DX: M54.50 Low back pain, unspecified (principal); R31.9 Hematuria, unspecified; A59.9 Trichomoniasis, unspecified
CPT/HCPCS: 72131; 81001; 87086; 96372; 99284; J1885; J2360

== ENCOUNTER 2025-03-03 14:48 | Outpatient (CLI) | payer OTHER, SELFPAY ==
--- OUTSIDE RECORDS SUMMARY | 2025-03-03 22:53 | XMS_ITS | Clinical Summary ---
Author Organization Healthcare Address [address] [id number] Care Team Providers Care Beam Builder Helper Name Role Phone Lino Cruz DO Primary Care Provider [phone] Allergies Active Allergy Reactions Criticality Noted Date [...] Low 04/28/2017 Medications Vitamin D3 1.25 MG (57201 UT) capsule 3 Active cholecalciferol (Vitamin D-3) [...] history exists [facility]-Depression Screening 12/30/2023 12/29/2022, 12/20 [id number] Vaccine ( - 2024-25 season) 2024 [facility]-Influenza [...] to complete this topic Insurance [place] L[place] [id number] [employer] Care Teams Beam Builder Helper Relationship Specialty Start Date End Date Lino Cruz DO [address] [place] [address] ASIA [place] [address] PCP - General 07/23/23
[2025-03-04 02:54] LABS: Chlamydia trachomatis Negative (Negative); Neisseria gonorrhoeae Negative (Negative); Trichomonas vaginalis Negative (Negative)
== END 2025-03-03 23:59 | disposition home or self-care (01) ==
LOC: LAB.DROPOF 22:52
PROVIDERS: PCP Family Medicine; Visit Provider Family Medicine
DX: A59.9 Trichomoniasis, unspecified (principal)
CPT/HCPCS: 87491; 87591; 87661

== ENCOUNTER 2025-07-25 22:04 | Emergency (ER) | payer OTHER, SELFPAY ==
[2025-07-25 22:13] VITALS: BP 171/103; PULSE 98; RESP 18; TEMP 36.7; O2SAT 100; BMI 46.8
--- OUTSIDE RECORDS SUMMARY | 2025-07-25 22:30 | XMS_ITS | Clinical Summary ---
Author Organization Healthcare Address [address] [id number] Care Team Providers Care Awning Craftsman Name Role Phone Lino Cruz DO Primary Care Provider [phone] Allergies Active Allergy Reactions Criticality Noted Date [...] Low 04/28/2017 Medications Vitamin D3 1.25 MG (78965 UT) capsule 3 Active cholecalciferol (Vitamin D-3) [...] history exists [facility]-Depression Screening 12/30/2023 12/29/2022, 12/20 [id number] Vaccine ( - season) 2025 [facility]-Influenza Vaccine (#1) 05/22/202507/23, 06/17/2010, 07/20/2008, Additional history exists [facility]-Zoster Vaccines [...] to complete this topic Insurance ASIA LING [id number] [employer] Care Teams Awning Craftsman Relationship Specialty Start Date End Date Lino Cruz DO [address] [place] [address] ASIA Reynolds [address] PCP - General 07/23/23
--- NOTE | 2025-07-25 22:33 | PC.NURSE ---
clothing, belongings removed and placed in patient belongings bag. Pt placed in appropriate gown and given warm gown. Grandmother at the bedside.
[2025-07-25 22:34] VITALS: BP 184/87; PULSE 89; RESP 16; O2SAT 97
--- NOTE | 2025-07-25 22:43 | HMH.EDGENADL ---
Discharge Plan Disposition Patient Disposition: Home, Self-Care Prescriptions Prescriptions: No Action lisinopril-hydrochlorothiazide 20-25 mg tablet 1 tab PO DAILY Qty: 30 2RF methocarbamol 750 mg tablet 750 mg PO Q8H Qty: 90 0RF ibuprofen 800 mg tablet 800 mg PO Q8H PRN (Reason: pain) Qty: 20 0RF Referrals Follow up/Referrals: Kassie Lepe APRN [Primary Care Provider, Family Practice] - See instructions Activity Restrictions/Add. Instructions Additional Instructions/Restrictions: Please follow-up with your outpatient resources. Please do not cut yourself, it can have serious consequences. Keep the wound clean and dry as discussed. Change bandages at least once a day. Have stitches removed in 7 to 10 days per Clinical Impressions Clinical Impression: Deliberate self-cutting Laceration of left forearm Qualifiers: Encounter type: initial encounter Qualified Code(s): S51.812A - Laceration without foreign body of left forearm, initial encounter Print Language Print Language: Maldivian Discharge ED Provider: Kye Servin General Adult HPI <Precious Hyman DO - Last Filed: 07/26/25 00:51> General Chief complaint: Psychiatric Symptoms Stated complaint: AO cut on left arm with glass Time Seen by Provider: 07/25/25 22:43 Mode of Arrival: Ambulatory Source of Information: Patient and Relative Description of Symptoms (Recalled from ER Triage Doc. by RN): patient presents with two very long and deep lacerations to the left forearm. patient states he was in a depressive episode and that this was intentional. History of Present Illness HPI narrative: Patient is a 25-year-old male with a past medical history of depression and cutting history who presents to the emergency department with a long laceration to his left forearm. Patient states that he had a recent break-up with his girlfriend this past week and he uses cutting as a way to relieve stress. Patient states that he is not suicidal or homicidal. States that he previously cuts horizontally but cut vertically today. Patient states that he used a piece of his bong. Patient states that the cut was deeper than he thought which is what brought him here to the emergency department. Patient states that he does not know when his last tetanus shot was. Patient is not on any medications for depression or anxiety. Patient states that he has been admitted to the [place] once before. Patient states that he has a therapist but has never seen a psychiatrist. Patient denies any alcohol use today patient denies any other drug use. Patient states that he did not take any substances to try to harm himself. Related Data Previous Rx's ?Medication ?Instructions ?Recorded ibuprofen 800 mg tablet 800 mg PO Q8H PRN pain #20 tabs 02/24/25 methocarbamol 750 mg tablet 750 mg PO Q8H #90 tabs 02/24/25 lisinopril 20 1 tab PO DAILY #30 tabs 03/03/25 mg-hydrochlorothiazide 25 mg tablet Allergies Allergy/AdvReac Type Severity Reaction Status Date / Time amoxicillin (AMOXICILLIN) Allergy Unknown Hives Verified 03/03/25 14:25 cephalexin (From KEFLEX) Allergy Unknown Hives Verified 03/03/25 14:25 clavulanic acid (From Allergy Unknown Hives Verified 03/03/25 14:25 AUGMENTIN) Penicillins Allergy Unknown Hives Verified 03/03/25 14:25 [facility] <Precious Hyman DO - Last Filed: 07/26/25 00:51> [facility] Disclaimer: The information contained in this section may have been updated after the patient was seen, as this information can be updated by other users. Medical History Depression Anxiety History of gastroesophageal reflux (GERD) Hypertension Family history of diabetes mellitus Surgical History History of placement of ear tubes History of cardiac radiofrequency ablation 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 Smoking Status: Current every day smoker second hand exposure: No alcohol intake: current substance use type: marijuana current occupational status: unemployed and other Travel in the last 8 weeks?: None household members: family housing: house current occupational exposures/hazards: No caffeine: Yes Have you lived/traveled outside US in past 30 days?: No Contact w/someone who lives/traveled outside US past 30 days?: No Exposure to someone with infectious disease in past 14 days?: No Do you have a fever (greater than 100.4 F or 38 C)?: No Have you tested positive for COVID-19?: No Exposed to someone with COVID-19 in past 14 days?: No Do you have a sore throat?: No Do you have a cough?: No Do you have any weakness?: No Do you have any diarrhea?: No Are you experiencing any unusual bleeding?: No Do you have any muscle aches/pain?: No Do you have any abdominal pain?: No Are you experiencing loss of taste or smell?: No Other Medical History Have you received the Flu Vaccine for this season: No Have you received the Pneumonia Vaccine: No <Precious Hyman, - Last Filed: 07/26/25 00:51> ROS Obtained: Yes All systems reviewed & no additional complaints except as documented and Yes Systems reviewed as appropriate & no additional complaints except as documented Physical Exam <Precious Hyman DO - Last Filed: 07/26/25 00:51> General General appearance: alert and in no apparent distress Head Head exam: atraumatic, normocephalic and normal inspection Eye Eye exam: Present normal appearance, PERRL and EOMI; Absent scleral icterus ENT ENT exam: Present normal exam and normal external ear exam Neck Neck exam: Present normal inspection and full ROM Chest Chest inspection: Present normal inspection and symmetric chest wall rise Respiratory Respiratory exam: Present normal lung sounds bilaterally; Absent respiratory distress or wheezes Cardiovascular Cardiovascular exam: Present regular rate, normal rhythm, normal heart sounds and other (2+ radial pulse in the LUE) Abdominal Exam Abdominal exam: Present soft and distention; Absent tenderness, guarding or rebound Extremities Exam Extremities exam: Present normal inspection and full ROM Back Exam Back exam: Present normal inspection and full ROM Neurological Exam Neurological exam: Present alert, oriented X3 and other (NVI in the LUE) Psychiatric Psychiatric exam: Present normal affect and normal mood Skin Skin exam: Present warm, dry and other (15 cm linear laceration to the left forearm, no active bleeding, old horizontal scars on left forearm) Medical Decision Making <Precious Hyman DO - Last Filed: 07/26/25 00:51> Medical Records Medical records reviewed: Yes I reviewed the patient's medical records. Screening: Per USPSTF and CDC recommendations, given the prevalence of disease in our region, it is our hospital?s policy to screen for HIV and viral Hepatitis for all patients aged 18 and over and those with ongoing risk factors. Herve Inquiry Pt receiving controlled substance: No Vital Signs: 07/25/25 22:13 07/25/25 22:34 07/26/25 01:48 Temperature 98.1 F 98.1 F Temperature Source Oral Pulse Rate 89 77 Pulse Rate [Right Radial] 98 H Respiratory Rate 18 16 16 Blood Pressure 184/87 H 131/77 Blood Pressure [Left Arm] 171/103 H Blood Pressure Mean [Left Arm] 125 Blood Pressure Source [Left Arm] Automatic Cuff Blood Pressure Position Sitting Sitting Blood Pressure Position [Left Arm] Sitting 02 Sat by Pulse Oximetry 100 97 Oxygen Delivery Method Room Air Room Air Room Air Lab Data Lab results reviewed: Yes I reviewed the patient's lab results. Lab Results 07/25/25 22:45: WBC 11.9 H, RBC 4.90, Hgb 14.3, Hct 42.4, MCV 86.5, MCH 29.2, MCHC 33.7, RDW 12.0, Plt Count 249, MPV 12.3 H, Neut % (Auto) 71.0, Lymph % (Auto) 20.9, Banner % (Auto) 6.3, Eos % (Auto) 1.0, Baso % (Auto) 0.5, Neut # (Auto) 8.5 H, Lymph # (Auto) 2.5, Banner # (Auto) 0.8, Eos # (Auto) 0.1, Baso # (Auto) 0.1, Sodium 143, Potassium 3.7, Chloride 106, Carbon Dioxide 26, Anion Gap 14.7, BUN 17, Creatinine 0.90, Estimated Creat Clear 143, Estimated GFR 104, Est GFR ( Amer) 125, Glucose 101 H, Calcium 8.9, Total Bilirubin 0.4, AST 50, ALT 55, Alkaline Phosphatase 98, Total Protein 7.9, Albumin 5.1 H, Globulin 2.8, Albumin/Globulin Ratio 1.8, TSH 1.25, Free T4 1.19, Salicylates < 1.0 L, Acetaminophen < 10 L, Plasma/Serum Alcohol < 10 07/26/25 00:00: Urine Opiates Screen Negative, Urine Methadone Screen Negative, Ur Barbituates Screen Negative, Ur Phencyclidine Scrn Negative, Ur Amphetamines Screen Negative, U Benzodiazepines Scrn Negative, Urine Cocaine Screen Negative, U Marijuana (THC) Screen Positive H 07/26/25 01:00: Urine Color Yellow, Urine Appearance Clear, Urine pH 6.0, Ur Specific [place] 1.025, Urine Protein Negative, Urine Glucose (UA) Negative, Urine Ketones Trace, Urine Blood 1+ A, Urine Nitrate Negative, Urine Bilirubin Negative, Urine Urobilinogen 0.2, Ur Leukocyte Esterase Negative 07/25/25 22:45 07/25/25 22:45 Orders (Tests/Meds): ED MEDICATIONS Discontinued Medications Generic Name Dose Route Start Last Admin Trade Name Pearl PRN Reason Stop Dose Admin Acetaminophen 1,000 mg 07/25/25 22:51 07/25/25 23:04 Acetaminophen 500mg Tab PO 07/25/25 22:52 1,000 mg ONCE ONE Administration Cocaine HCl 1 ml 07/25/25 22:54 07/25/25 23:06 Cocaine 4% Topical Soln 4ml Bottle TP 07/25/25 22:55 1 ml ONCE ONE Administration Cocaine HCl 1 ml 07/25/25 22:55 07/25/25 23:06 Cocaine 4% Topical Soln 4ml Bottle TP 07/25/25 22:56 1 ml ONCE ONE Administration Epinephrine HCl 1 mg 07/25/25 22:54 07/25/25 23:05 Epinephrine 1 Mg/Ml Ampul TP 07/25/25 22:55 1 mg ONCE ONE Administration Epinephrine HCl 1 mg 07/25/25 22:55 07/25/25 23:05 Epinephrine 1 Mg/Ml Ampul TP 07/25/25 22:56 1 mg ONCE ONE Administration Ibuprofen 800 mg 07/25/25 22:52 07/25/25 23:04 Ibuprofen 800 Mg Tablet PO 07/25/25 22:53 800 mg ONCE ONE Administration Lidocaine HCl 1 ml 07/25/25 22:54 07/25/25 23:06 Lidocaine 2% Urojet 10ml TP 07/25/25 22:55 1 ml ONCE ONE Administration Lidocaine HCl 1 ml 07/25/25 22:55 07/25/25 23:06 Lidocaine 2% Urojet 10ml TP 07/25/25 22:56 1 ml ONCE ONE Administration Lidocaine/Epinephrine 5 ml 07/26/25 00:02 07/26/25 00:34 Lidocaine 1% W/Epi 1:100,000 20ml Vial IJ 07/26/25 00:03 5 ml ONCE ONE Administration Tetanus/Reduced Diphtheria/Acell Pertussis 0.5 ml 07/25/25 22:52 07/25/25 23:04 Tet/Diphth/Pert-Adult 0.5ml Syringe IM 07/25/25 22:53 0.5 ml .ONCE ONE Administration ORDERS Category Date Time Status Forearm XR left 2 views [XR forearm LT 2V] Stat Exams 07/25/25 22:51 Completed Acetaminophen Stat Lab 07/25/25 22:45 Completed CBC w/Auto Diff [Complete Blood Count Auto Diff] Stat Lab 07/25/25 22:45 Completed CMP [Comprehensive Metabolic Panel] Stat Lab 07/25/25 22:45 Completed Ethyl Alcohol Stat Lab 07/25/25 22:45 Completed Free T4 (Free Thyroxine) Stat Lab 07/25/25 22:45 Completed Salicylate Stat Lab 07/25/25 22:45 Completed TSH [Thyroid Stimulating Hormone] Stat Lab 07/25/25 22:45 Completed UDS [Drug Screen,Urine] Stat Lab 07/26/25 00:00 Completed Urinalysis and Microscopic Stat Lab 07/26/25 01:36 Ordered Medical Decision Narrative: Patient is a 25-year-old male with no significant past medical history except for depression and previous cutting history who presents to the emergency department with a long laceration to his left forearm after cutting it with a piece of glass. On arrival, patient was hemodynamically stable with unremarkable vital signs. Differential includes but not limited to: Foreign body, fracture, laceration, cellulitis, vascular injury, amongst others.Tetanus updated. On exam, patient had a 15 cm linear laceration to the left forearm. Patient was otherwise neurovascularly intact no active bleeding to suggest vascular injury or neurovascular injury. X-ray was obtained to rule out foreign body. X-ray was reviewed and interpreted by myself and showed no acute fracture or foreign body. Although at this time, patient is actively endorsing no suicidal ideations or homicidal ideations and has an extensive laceration to the left forearm and patient has had no vertical lacerations in the past. Labs were obtained as well as urine drug screen. [facility] was contacted for a psychiatry evaluation. Patient was signed out to the oncoming provider pending [facility] evaluation. <Kye Servin MD - Last Filed: 07/26/25 02:06> Vital Signs: 07/25/25 22:13 07/25/25 22:34 07/26/25 01:48 Temperature 98.1 F 98.1 F Temperature Source Oral Pulse Rate 89 77 Pulse Rate [Right Radial] 98 H Respiratory Rate 18 16 16 Blood Pressure 184/87 H 131/77 Blood Pressure [Left Arm] 171/103 H Blood Pressure Mean [Left Arm] 125 Blood Pressure Source [Left Arm] Automatic Cuff Blood Pressure Position Sitting Sitting Blood Pressure Position [Left Arm] Sitting 02 Sat by Pulse Oximetry 100 97 Oxygen Delivery Method Room Air Room Air Room Air Lab Data Lab Results 07/25/25 22:45: WBC 11.9 H, RBC 4.90, Hgb 14.3, Hct 42.4, MCV 86.5, MCH 29.2, MCHC 33.7, RDW 12.0, Plt Count 249, MPV 12.3 H, Neut % (Auto) 71.0, Lymph % (Auto) 20.9, Banner % (Auto) 6.3, Eos % (Auto) 1.0, Baso % (Auto) 0.5, Neut # (Auto) 8.5 H, Lymph # (Auto) 2.5, Banner # (Auto) 0.8, Eos # (Auto) 0.1, Baso # (Auto) 0.1, Sodium 143, Potassium 3.7, Chloride 106, Carbon Dioxide 26, Anion Gap 14.7, BUN 17, Creatinine 0.90, Estimated Creat Clear 143, Estimated GFR 104, Est GFR ( Amer) 125, Glucose 101 H, Calcium 8.9, Total Bilirubin 0.4, AST 50, ALT 55, Alkaline Phosphatase 98, Total Protein 7.9, Albumin 5.1 H, Globulin 2.8, Albumin/Globulin Ratio 1.8, TSH 1.25, Free T4 1.19, Salicylates < 1.0 L, Acetaminophen < 10 L, Plasma/Serum Alcohol < 10 07/26/25 00:00: Urine Opiates Screen Negative, Urine Methadone Screen Negative, Ur Barbituates Screen Negative, Ur Phencyclidine Scrn Negative, Ur Amphetamines Screen Negative, U Benzodiazepines Scrn Negative, Urine Cocaine Screen Negative, U Marijuana (THC) Screen Positive H 07/26/25 01:00: Urine Color Yellow, Urine Appearance Clear, Urine pH 6.0, Ur Specific [place] 1.025, Urine Protein Negative, Urine Glucose (UA) Negative, Urine Ketones Trace, Urine Blood 1+ A, Urine Nitrate Negative, Urine Bilirubin Negative, Urine Urobilinogen 0.2, Ur Leukocyte Esterase Negative Orders (Tests/Meds): ED MEDICATIONS Discontinued Medications Generic Name Dose Route Start Last Admin Trade Name Pearl PRN Reason Stop Dose Admin Acetaminophen 1,000 mg 07/25/25 22:51 07/25/25 23:04 Acetaminophen 500mg Tab PO 07/25/25 22:52 1,000 mg ONCE ONE Administration Cocaine HCl 1 ml 07/25/25 22:54 07/25/25 23:06 Cocaine 4% Topical Soln 4ml Bottle TP 07/25/25 22:55 1 ml ONCE ONE Administration Cocaine HCl 1 ml 07/25/25 22:55 07/25/25 23:06 Cocaine 4% Topical Soln 4ml Bottle TP 07/25/25 22:56 1 ml ONCE ONE Administration Epinephrine HCl 1 mg 07/25/25 22:54 07/25/25 23:05 Epinephrine 1 Mg/Ml Ampul TP 07/25/25 22:55 1 mg ONCE ONE Administration Epinephrine HCl 1 mg 07/25/25 22:55 07/25/25 23:05 Epinephrine 1 Mg/Ml Ampul TP 07/25/25 22:56 1 mg ONCE ONE Administration Ibuprofen 800 mg 07/25/25 22:52 07/25/25 23:04 Ibuprofen 800 Mg Tablet PO 07/25/25 22:53 800 mg ONCE ONE Administration Lidocaine HCl 1 ml 07/25/25 22:54 07/25/25 23:06 Lidocaine 2% Urojet 10ml TP 07/25/25 22:55 1 ml ONCE ONE Administration Lidocaine HCl 1 ml 07/25/25 22:55 07/25/25 23:06 Lidocaine 2% Urojet 10ml TP 07/25/25 22:56 1 ml ONCE ONE Administration Lidocaine/Epinephrine 5 ml 07/26/25 00:02 07/26/25 00:34 Lidocaine 1% W/Epi 1:100,000 20ml Vial IJ 07/26/25 00:03 5 ml ONCE ONE Administration Tetanus/Reduced Diphtheria/Acell Pertussis 0.5 ml 07/25/25 22:52 07/25/25 23:04 Tet/Diphth/Pert-Adult 0.5ml Syringe IM 07/25/25 22:53 0.5 ml .ONCE ONE Administration ORDERS Category Date Time Status Forearm XR left 2 views [XR forearm LT 2V] Stat Exams 07/25/25 22:51 Completed Acetaminophen Stat Lab 07/25/25 22:45 Completed CBC w/Auto Diff [Complete Blood Count Auto Diff] Stat Lab 07/25/25 22:45 Completed CMP [Comprehensive Metabolic Panel] Stat Lab 07/25/25 22:45 Completed Ethyl Alcohol Stat Lab 07/25/25 22:45 Completed Free T4 (Free Thyroxine) Stat Lab 07/25/25 22:45 Completed Salicylate Stat Lab 07/25/25 22:45 Completed TSH [Thyroid Stimulating Hormone] Stat Lab 07/25/25 22:45 Completed UDS [Drug Screen,Urine] Stat Lab 07/26/25 00:00 Completed Urinalysis and Microscopic Stat Lab 07/26/25 01:36 Ordered Medical Decision Narrative: Patient is a 25-year-old male with no significant past medical history except for depression and previous cutting history who presents to the emergency department with a long laceration to his left forearm after cutting it with a piece of glass. On arrival, patient was hemodynamically stable with unremarkable vital signs. Differential includes but not limited to: Foreign body, fracture, laceration, cellulitis, vascular injury, amongst others.Tetanus updated. On exam, patient had a 15 cm linear laceration to the left forearm. Patient was otherwise neurovascularly intact no active bleeding to suggest vascular injury or neurovascular injury. X-ray was obtained to rule out foreign body. X-ray was reviewed and interpreted by myself and showed no acute fracture or foreign body. Although at this time, patient is actively endorsing no suicidal ideations or homicidal ideations and has an extensive laceration to the left forearm and patient has had no vertical lacerations in the past. Labs were obtained as well as urine drug screen. [facility] was contacted for a psychiatry evaluation. Patient was signed out to the oncoming provider pending [facility] evaluation. Malathi BULLOCK: I assumed care of the patient at the time of handoff from the prior provider. On reassessment patient continues to deny any active suicidal ideation. Laceration was irrigated and repaired with running sutures. He spoke with the team at [facility] and they report that he is not a candidate for inpatient treatment at this time and he is appropriate for discharge with outpatient management given he is not actively suicidal and he uses cutting as a way to release his emotions. His labs were independently interpreted by me and not show any serious abnormalities. Radiograph of the forearm was independently interpreted by me and shows no evidence of foreign body. Patient was discharged in stable condition. Return precautions given. He was given instructions regarding wound care and follow-up. Procedures <Kye Servin MD - Last Filed: 07/26/25 02:06> Laceration Laceration 1: Site: upper extremity (forearm) Side (If applicable): left Size (cm): 18 Description: linear Depth: simple, single layer Local Anesthetic: lidocaine 1% and with epi Amount of anesthesia used (mL): 10 Pre-repair: wound explored, irrigated extensively and deep structures intact Skin layer closed with: nylon Size (cm): 4-0 Number of sutures: 3 Technique: running Critical Care <Precious Hyman DO - Last Filed: 07/26/25 00:51> Critical Care Time Critical Care Time: No
--- NOTE | 2025-07-25 22:51 | XR_ITS ---
PROCEDURE INFORMATION: Exam: XR Left Forearm Exam date and time: 07/25/2025 11:27 PM Age: 25 years old Clinical indication: Other: R/O fb; Additional info: R/O fb from glass TECHNIQUE: Imaging protocol: Radiologic exam of the left forearm. Views: 2 views. COMPARISON: No relevant prior studies available. FINDINGS: Bones/joints: Unremarkable visualized bones and joints. Soft tissues: Unremarkable. IMPRESSION: Unremarkable visualized bones and joints.
[2025-07-25] MEDS: ACETAMINOPHEN 500MG TAB 1000 MG PO (23:04)
[2025-07-25] MEDS: TET/DIPHTH/PERT-ADULT 0.5ML SYRINGE 0.5 ML IM (23:04)
[2025-07-25] MEDS: IBUPROFEN 800 MG TABLET PO (23:04)
[2025-07-25] MEDS: LIDOCAINE 2% UROJET 10ML TP ×2 (23:06)
[2025-07-25] MEDS: COCAINE 4% TOPICAL SOLN 4ML BOTTLE 1 ML TP ×2 (23:06)
--- NOTE | 2025-07-25 23:22 | PC.NURSE ---
Pt laceration on left forearm cleansed with Hibiclens, LET applied, wrapped with curlex
--- NOTE | 2025-07-25 23:48 | PC.NURSE ---
lab contacted and made aware of orders that were placed now, Pt attempts to provide urine for testing with no success
[2025-07-25 23:53] LABS: Hematocrit 42.4 % (42.0-52.0); Hemoglobin 14.3 g/dL (14.1-18.0); Immature Granulocytes % 0.3 %; Mean Corpuscular HGB Conc 33.7 g/dL (31.8-35.4); Mean Corpuscular Hemoglobin 29.2 pg (27.0-31.2); Mean Corpuscular Volume 86.5 fl (80-94); Nucleated Red Blood Cells % 0 %; Platelet Count 249 K/mm3 (142-424); Red Blood Count 4.90 M/mm3 (4.60-6.20); Red Cell Distribution Width-SD 37.9 fL; White Blood Count 11.9 K/mm3 (4.8-10.8)
[2025-07-25 23:57] LABS: Albumin Level 5.1 g/dl (3.5-5.0); Chloride 106 mmol/L (98-107); Sodium 143 mmol/L (136-145)
[2025-07-25 23:58] LABS: Potassium 3.7 mmoL/L (3.5-5.1)
[2025-07-26] LABS: Alanine Aminotransferase 55 U/L (12-78); Albumin/Globulin Ratio 1.8 (1.1-1.8); Anion Gap 14.7 mEq/L (5-15); Aspartate Amino Transferase 50 U/L (17-59); Bilirubin,Total 0.4 mg/dl (0.2-1.3); Blood Urea Nitrogen 17 mg/dl (9-20); Carbon Dioxide 26 mmol/L (22.0-30.0); Creatinine Clearance Estimated 143 mL/min (50-200); Creatinine,Serum 0.90 mg/dl (0.66-1.25); Estimated Glomerular Filt Rate 104 ml/min (>60); GFR (African American) 125 ML/MIN (>60); Globulin 2.8 g/dL (1.3-3.2); Total Protein,Serum 7.9 g/dl (6.3-8.2)
[2025-07-26 00:01] LABS: Alkaline Phosphatase 98 U/L (38-126); Calcium 8.9 mg/dl (8.4-10.2); Glucose 101 mg/dl (74-100)
[2025-07-26 00:17] LABS: Acetaminophen < 10 ug/ml (10-30); Free T4 (Free Thyroxine) 1.19 ng/dl (0.78-2.19); Salicylate < 1.0 mg/dL (2.0-20.0)
[2025-07-26] MEDS: LIDOCAINE 1% W/EPI 1:100,000 20ML VIAL 5 ML IJ (00:34)
[2025-07-26 00:35] LABS: Thyroid Stimulating Hormone 1.25 uIU/mL (0.465-4.68)
[2025-07-26 01:01] LABS: Barbiturates Screen,Urine Negative ng/ml (<200)
[2025-07-26 01:02] LABS: Amphetamine/Metha Screen,Urine Negative ng/ml (<1000); Benzodiazepines Screen,Urine Negative ng/ml (<200)
[2025-07-26 01:04] LABS: Methadone Screen,Urine Negative ng/ml (<300)
[2025-07-26 01:05] LABS: Opiate Screen,Urine Negative ng/ml (<300); Phencyclidine Screen,Urine Negative ng/ml (<25)
--- NOTE | 2025-07-26 01:37 | PC.NURSE ---
Arnold on the phone speaking with the patient at this time
--- NOTE | 2025-07-26 01:39 | PC.NURSE ---
Blanca from [facility] called & stated pt is not SI/HI and only wants out patient treatment.
[2025-07-26 01:43] LABS: Bilirubin,Urine Negative (Negative); Color,Urine YELLOW (Yellow); Glucose,Urine (UA) Negative (Negative); Ketones,Urine TRACE (Negative); Leukocyte Esterase,Urine Negative (Negative); Microscopic, Urine URINE MICROSCOPIC (MICROSCOPIC); PH,Urine 6.0 (5.0-8.5); Protein,Urine Negative (Negative); Specific Gravity, Urine 1.025 (1.005-1.030); Urobilinogen,Urine 0.2 EU/dl (0.2)
[2025-07-26 01:48] VITALS: BP 131/77; PULSE 77; RESP 16; TEMP 36.7; O2SAT 93
[2025-07-26 02:04] LABS: Bacteria,Urine 1+ /lpf; Mucus,Urine 1+ /lpf
== END 2025-07-26 01:50 | disposition home or self-care (01) ==
PROVIDERS: Student in an Organized Health Care Education/Training Program; Emergency Provider Emergency Medicine; PCP Family Medicine
DX: S51.812A Laceration without foreign body of left forearm, initial encounter (principal); F17.210 Nicotine dependence, cigarettes, uncomplicated; X78.0XXA Intentional self-harm by sharp glass, initial encounter
CPT/HCPCS: 12005; 73090; 80053; 80307; 80320; 80329; 81001; 84439; 84443; 85025; 90471; 90715; 99284; 99285; J0169; J2004

== ENCOUNTER 2025-08-23 09:50 | Outpatient (CLI) | payer OTHER, SELFPAY ==
--- NOTE | 2025-08-23 09:53 | US_ITS ---
FINAL REPORT TECHNIQUE: Sonographic images of the kidneys and retroperitoneum were obtained in the longitudinal and transverse planes. CLINICAL HISTORY: HEMATURIA/ESSENTIAL HTN FINDINGS: The right kidney measures 11.2 cm in [id number]-[id number] length. No hydronephrosis, mass, or stone. Cortical echogenicity and thickness are normal. The left kidney measures 11.8 cm in rhor-sd-ekny length. No hydronephrosis, mass, or stone. Cortical echogenicity and thickness are normal. IMPRESSION: Morphologically normal kidneys bilaterally. Reviewed, Interpreted and Dictated by Charlotte Locke MD Transcribed by Rebekah Justice Authenticated and [facility]
--- OUTSIDE RECORDS SUMMARY | 2025-08-23 09:55 | XMS_ITS | Clinical Summary ---
Author Organization Healthcare Address [address] [id number] Care Team Providers Care Electric Serviceman Name Role Phone Lino Cruz DO Primary Care Provider [phone] Allergies Active Allergy Reactions Criticality Noted Date [...] Low 04/28/2017 Medications Vitamin D3 1.25 MG (79385 UT) capsule 3 Active cholecalciferol (Vitamin D-3) [...] history exists [facility]-Depression Screening 12/30/2023 12/29/2022, 12/20 [id number] Vaccine ( - season) 2025 [facility]-Influenza Vaccine [...] to complete this topic Insurance [place]IA L[place] [id number] [employer] Care Teams Electric Serviceman Relationship Specialty Start Date End Date Lino Cruz DO [address] [place] [address] ASIA Reynolds [id number] PCP - General 07/23/23
--- NOTE | 2025-08-23 10:14 | CA_ITS ---
FINAL REPORT TECHNIQUE: Ultrasound images of the kidneys were obtained. Duplex Doppler of the renal arteries, RAR and RI also obtained. Spectral analysis was performed. CLINICAL HISTORY: Hematuria, HTN, Obesity COMPARISON: None FINDINGS: Limited images of the liver parenchyma demonstrate normal echogenicity. The right kidney measures 11.7 cm in length. It is normal echogenicity. There is no hydronephrosis. RI is 0.50-0.65. The renal artery/aortic ratio: 1.6. The left kidney measures 12 cm in length. It is normal echogenicity. There is no hydronephrosis. RI is 0.56-0.68. The renal artery/aortic ratio: 1.3. IMPRESSION: Normal left renal Doppler. Less than 60% stenosis of the right renal artery. Reviewed, Interpreted and Dictated by Charlotte Locke MD Transcribed by Bernice Vail Authenticated and [facility]
== END 2025-08-23 23:59 | disposition home or self-care (01) ==
LOC: RAD 09:50
PROVIDERS: PCP Physician Assistant; Visit Provider Physician Assistant
DX: I70.1 Atherosclerosis of renal artery (principal); I10 Essential (primary) hypertension; R31.29 Other microscopic hematuria
CPT/HCPCS: 76770; 93976